=== PATIENT | male | born 1950 | race Caucasian/White ===

== ENCOUNTER → 2020-08-03 10:02 | Outpatient (BNVA) | payer MEDICARE, SELFPAY | PROVIDERS: PCP Family Medicine; Visit Provider Nurse Practitioner Family | DX: Z01.810 Encounter for preprocedural cardiovascular examination (principal); I48.20 Chronic atrial fibrillation, unspecified; I25.10 Atherosclerotic heart disease of native coronary artery without angina pectoris; I50.30 Unspecified diastolic (congestive) heart failure; Z95.5 Presence of coronary angioplasty implant and graft; Z95.0 Presence of cardiac pacemaker; Z79.01 Long term (current) use of anticoagulants; Z79.899 Other long term (current) drug therapy | CPT/HCPCS: 99214 ==

== ENCOUNTER → 2020-08-06 07:49 | Outpatient (REF) | payer MEDICARE, SELFPAY ==
--- NOTE | 2020-08-06 07:48 | CA_ITS ---
Acquisition Time: 2020-08-06 08:10:27 Total Exercise Time: 00:02:00 Test Indications: Pre-Op Evaluation Medications: AMLODIPINE ATORVASTATIN CLOPIDOGREL FUROSEMIDE HRDRALAZINE METOPROLOL LEVOTHYROXINE WARFARIN ISOSORBIDE METFORMIN Protocol: LEXISCAN Max HR: 081 BPM 54% of Pred: 149 BPM Max BP: 116/064 mmHG Max Work Load: 1.0 METS Pharmacological stress test using Lexiscan while sitting. Pt tolerated well, c/o abdominal discomfort, reversed with Aminophyline 75 mg IV. Pt denies any anginal sx. EKG with LBBB, V-paced and a-fib. Non-diagnostic for ischemia. Nuclear images to follow. Normotensive response to test. Test reviewed with Dr. Ramirez Referred By: Miranda Cobb Overread By: Martir Mata
--- NOTE | 2020-08-06 08:15 | NM_ITS ---
Lexiscan Myocardial perfusion study Indication: Preoperative cardiac vascular evaluation, coronary disease, assess for ischemia Technique: The patient was brought in for a Lexiscan perfusion study on 08/06/2020 and was injected 0.4 mg of Lexiscan intravenously. Within a minute of this injection 30 mCi of sestamibi was given intravenously. Images were obtained using the SPECT gamma camera interlaced with the gating device. Images were obtained in supine position. Resting perfusion study was performed on 08/07/2020. Patient was administered 30 mCi of sestamibi intravenously at rest. Images were then obtained in supine position. Total DLP 61mGy-cm. Images were processed with the software and compared side to side in short axis, horizontal long axis and vertical long axis views. Findings: Raw acquisition was reviewed. The stress perfusion study showed markedly diminished tracer uptake along the inferior wall except in the most distal portion. There is some improvement with CT attenuation correction that may indicate a component of diaphragmatic artifact. The gated study shows normal LV systolic function with calculated LVEF of 66%. LV cavity is normal in size. The gated study markedly diminished contractility along the inferior wall. Resting study shows markedly diminished tracer uptake along the inferior wall with only slight improvement compared to the stress acquisition. Gating at rest reveals ejection fraction at 55%. The findings are consistent with mostly fixed inferior perfusion defect. Impression: 1. Myocardial perfusion imaging study shows fixed perfusion defect along the inferior wall from basal to mid portions with minimal reversibility. This is consistent with patient's known chronic total occlusion of the right coronary artery. Other areas appear normally perfused. 2. Gated LVEF is 66% during stress; 52% during rest. 3. Transient ischemic dilatation not present. EKG component of the test reported separately.
== END ==
LOC: HO.CARD 07:49
PROVIDERS: Visit Provider Nurse Practitioner Family
DX: Z01.810 Encounter for preprocedural cardiovascular examination (principal); I48.20 Chronic atrial fibrillation, unspecified; I50.30 Unspecified diastolic (congestive) heart failure; I25.10 Atherosclerotic heart disease of native coronary artery without angina pectoris; Z95.0 Presence of cardiac pacemaker; Z95.5 Presence of coronary angioplasty implant and graft
CPT/HCPCS: 78452; 93017; A9500; J0280; J2785

== ENCOUNTER → 2020-08-07 09:32 | Outpatient (BNVA) | payer MEDICARE, SELFPAY | PROVIDERS: PCP Family Medicine; Visit Provider Internal Medicine Pulmonary Disease | DX: Z76.89 Persons encountering health services in other specified circumstances (principal) ==

== ENCOUNTER 2020-08-11 07:42 | Outpatient (REF) | payer MEDICARE, SELFPAY ==
[2020-08-11 08:35] LABS: INTERNATIONAL NORM RATIO 3.3 (0.9-1.1); Prothrombin Time 39.3 SEC (10.8-13.0)
== END 2020-08-11 07:43 | disposition home or self-care (01) ==
LOC: HO.LABR 07:42
PROVIDERS: PCP Family Medicine; Visit Provider Family Medicine
DX: I48.19 Other persistent atrial fibrillation (principal); Z79.01 Long term (current) use of anticoagulants
CPT/HCPCS: 36415; 85610

== ENCOUNTER → 2020-08-12 12:36 | Outpatient (BNVA) | payer MEDICARE, SELFPAY | PROVIDERS: PCP Family Medicine; Referring Provider Family Medicine; Visit Provider Internal Medicine | DX: Z01.810 Encounter for preprocedural cardiovascular examination (principal); I48.19 Other persistent atrial fibrillation; I11.0 Hypertensive heart disease with heart failure; I50.30 Unspecified diastolic (congestive) heart failure; I25.10 Atherosclerotic heart disease of native coronary artery without angina pectoris; E78.5 Hyperlipidemia, unspecified; E11.9 Type 2 diabetes mellitus without complications; Z79.01 Long term (current) use of anticoagulants; Z79.02 Long term (current) use of antithrombotics/antiplatelets; Z95.0 Presence of cardiac pacemaker; Z95.5 Presence of coronary angioplasty implant and graft | CPT/HCPCS: 99215 ==

== ENCOUNTER 2020-08-18 08:02 | Outpatient (REF) | payer MEDICARE, SELFPAY ==
[2020-08-18 10:41] LABS: INTERNATIONAL NORM RATIO 2.8 (0.9-1.1); Prothrombin Time 34.1 SEC (10.8-13.0)
== END 2020-08-18 08:03 | disposition home or self-care (01) ==
LOC: HO.10HDL 08:02
PROVIDERS: PCP Internal Medicine; Visit Provider Internal Medicine
DX: I48.91 Unspecified atrial fibrillation (principal)
CPT/HCPCS: 36415; 85610

== ENCOUNTER 2020-09-01 09:59 | Outpatient (REF) | payer MEDICARE, SELFPAY ==
--- NOTE | 2020-09-01 08:06 | PE_ITS ---
EXAMINATION: Fluorine-18 FDG PET/CT Scan CLINICAL INDICATION: Initial treatment management. Pulmonary nodules. PROCEDURE: 73 minutes following the intravenous administration of 15.3 mCi of fluorine 18 FDG, images from the base of the skull to the mid thighs were obtained using a combined PET/CT scanner with CT scan based attenuation correction. No oral contrast was administered. No intravenous contrast was administered. Transverse, coronal, sagittal, and volume reconstruction projections were obtained. The patient's blood glucose as determined by a finger stick, was 114 mg/dl immediately prior to injection. Total CT exam dose-length product 605.64 mGy-cm COMPARISON: No previous PET/CT is available for comparison. CT scan of the chest dated 07/09/2020 is available for comparison. FINDINGS: (Slice numbers described in this report are numbered superiorly to inferiorly with slice #1 in the head) NECK AND VISUALIZED HEAD: No foci of abnormal FDG activity are noted. The distribution of FDG activity is physiological. There is no cervical lymphadenopathy. There is a small mucous retention cyst in the left maxillary sinus with no associated abnormal FDG activity. THORAX: There is a medial pleural-based left upper lobe pulmonary nodule measuring 0.9 x 0.7 cm in largest transverse dimensions, and approximately 1.2 cm cephalocaudad. This shows no abnormal FDG activity, but this nodule is at the lower limits of resolution the FDG PET images. There is a solid-appearing 1.0 x 0.5 cm nodule posteriorly in the left lower lobe, too small to be characterized on the FDG PET images. This corresponds to the 0.5 x 0.7 x 1.2 mm groundglass opacity visualized on the 07/09/2020 CT scan. Both of these nodules do not appear significantly changed from the CT scan dated 07/09/2020.. A 0.3 cm left upper lobe nodule seen on 07/09/2020 CT scan is not apparent on these nondiagnostic CT images. No additional pulmonary nodules are visualized. A few additional small subcentimeter nodules visualized on the diagnostic 07/09/2020 CT scan are not apparent on these nondiagnostic CT images. There is no pleural or pericardial fluid, or pneumothorax. There is a 1.6 x 1.0 cm right lower paratracheal lymph node with no abnormal FDG activity. A few additional subcentimeter mediastinal lymph nodes are present, none of which show abnormal FDG activity. There is no supraclavicular or axillary lymphadenopathy. A left-sided a left chest pacemaker and associated leads are noted. ABDOMEN AND PELVIS: No foci of abnormal FDG activity are present in the abdomen or pelvis. The liver, gallbladder, and spleen are unremarkable. There is a mild right hydronephrosis and some dilatation of the distal right ureter. There is relatively decreased activity in the left kidney and a small hypodense cyst in the left kidney is noted, markedly FDG photopenic. The adrenal glands and pancreas are unremarkable. There is no retroperitoneal, mesenteric, pelvic or inguinal lymphadenopathy. There is FDG activity of varying intensities throughout the gastrointestinal tract and diffuse diverticulosis is noted without diverticulitis. The hollow viscera are otherwise unremarkable. The prostate gland has been resected and there are multiple metallic surgical clips in the prostate bed. There is no abnormal FDG activity in this region. Minimal thickening of the bladder wall is noted diffusely. Bilateral fat-containing inguinal hernias are present. MUSCULOSKELETAL: No foci of abnormal FDG activity are present in the osseous structures. There are degenerative changes in the spine but no suspicious sclerotic or lytic lesions are present. VASCULAR: Diffuse vascular calcifications including dense coronary calcifications are noted. There is ectasia of the infrarenal abdominal aorta measuring 2.9 cm in greatest AP diameter. PET/PET CT fusion skull to thigh IMPRESSION: 1. There is a 0.9 x 0.7 x 1.2 cm medial left upper lobe pulmonary nodule which shows no abnormal FDG activity suggesting a benign etiology, but this nodule is at the lower limits of resolution on the FDG PET images. Continued monitoring of this with diagnostic CT imaging in approximately 6-9 months is recommended. 2. An additional 1.0 x 0.5 cm nodule posteriorly in the left lower lobe is too small to be characterized on the FDG PET images and continued monitoring of this also with diagnostic CT imaging in 6-9 months is recommended. 3. A few additional small subcentimeter nodules visualized on the recent 07/09/[address] scan are not apparent on these nondiagnostic CT images, and all are much too small to be resolved on the FDG PET images. These 10 also be monitored with diagnostic CT imaging. 4. No additional abnormalities suspicious for metastatic or other malignant lesions are noted. 5. Diffuse vascular calcifications including dense coronary calcifications. 6. Mild right hydronephrosis and distal ureteral dilatation.
== END 2020-09-01 10:00 | disposition home or self-care (01) ==
LOC: HO.PET 09:59
PROVIDERS: PCP Family Medicine; Visit Provider Surgery
DX: Z13.89 Encounter for screening for other disorder (principal)

== ENCOUNTER 2020-09-08 07:33 | Outpatient (REF) | payer MEDICARE, SELFPAY ==
[2020-09-08 10:20] LABS: MANUAL DIFF FLAG NO
[2020-09-08 10:33] LABS: Basophils Percent Auto 0.5 % (0-2); Eosinophils Absolute Auto 0.2 X10*3/uL (0.0-0.4); Eosinophils Percent Auto 2.6 % (0-4); Hematocrit 34.2 % (42-52); Hemoglobin 11.4 g/dl (14.0-18.0); Imm Gran Abs Auto 0.01 X10*3/uL (0.00-0.03); Imm Gran Pct Auto 0.2 % (0.0-0.4); Lymphocytes Absolute Auto 1.1 X10*3/uL (1.2-4.9); Lymphocytes Percent Auto 17.3 % (20-40); Mean Corpuscular HGB Conc 33.3 g/dl (31.0-36.0); Mean Corpuscular Hemoglobin 33.6 pg (27.0-33.0); Mean Corpuscular Volume 100.9 fL (80-98); Mean Platelet Volume 9.5 fL (9.4-12.4); Monocytes Absolute Auto 0.7 X10*3/uL (0.1-1.2); Monocytes Percent Auto 11.9 % (2-11); Neutrophils Absolute Auto 4.2 X10*3/uL (2.0-8.3); Neutrophils Percent Auto 67.5 % (45-73); Platelet Count 201 X10*3/uL (160-400); Red Blood Count 3.39 X10*6/uL (4.60-5.80); Red Cell Distribution Width 13.4 % (11.0-16.0); White Blood Count 6.1 X10*3/uL (4.8-10.8)
[2020-09-08 10:48] LABS: INTERNATIONAL NORM RATIO 3.3 (0.9-1.1); Prothrombin Time 39.5 SEC (10.8-13.0)
[2020-09-08 10:57] LABS: Anion Gap 12 (12-20); Blood Urea Nitrogen 19 mg/dL (9-16); Carbon Dioxide 23 mmol/L (22-29); Chloride 107 mmol/L (96-108); Estimated Glomerular Filt Rate 54; Glucose Fasting 94 mg/dL (60-99); Sodium 138 mmol/L (135-145)
[2020-09-08 10:59] LABS: Estimated Average Glucose 117 mg/dL; Hemoglobin A1c % 5.7 %
[2020-09-08 11:22] LABS: Creatinine Urine 108.84 mg/dL; Microalbum/Creatinine Ratio Ur 33.9 ug/mg cr
== END 2020-09-08 07:34 | disposition home or self-care (01) ==
LOC: HO.10HDL 07:33
PROVIDERS: Visit Provider Family Medicine
DX: E11.9 Type 2 diabetes mellitus without complications (principal); I10 Essential (primary) hypertension; D64.9 Anemia, unspecified
CPT/HCPCS: 36415; 80051; 82043; 82565; 82947; 83036; 84520; 85025; 85610

== ENCOUNTER → 2020-09-11 12:03 | Outpatient (BNVA) | payer MEDICARE, SELFPAY | PROVIDERS: PCP Internal Medicine; Referring Provider Internal Medicine; Visit Provider Surgery | DX: R91.1 Solitary pulmonary nodule (principal); I25.10 Atherosclerotic heart disease of native coronary artery without angina pectoris; Z86.74 Personal history of sudden cardiac arrest; Z87.891 Personal history of nicotine dependence | CPT/HCPCS: 99214 ==

== ENCOUNTER 2020-09-15 07:44 | Outpatient (REF) | payer MEDICARE, SELFPAY ==
[2020-09-15 10:45] LABS: INTERNATIONAL NORM RATIO 2.7 (0.9-1.1); Prothrombin Time 32.9 SEC (10.8-13.0)
== END 2020-09-15 07:45 | disposition home or self-care (01) ==
LOC: HO.10HDL 07:44
PROVIDERS: Visit Provider Family Medicine
DX: I48.20 Chronic atrial fibrillation, unspecified (principal)
CPT/HCPCS: 36415; 85610

== ENCOUNTER 2020-09-22 08:23 | Outpatient (REF) | payer MEDICARE, SELFPAY ==
[2020-09-22 10:22] LABS: INTERNATIONAL NORM RATIO 2.3 (0.9-1.1); Prothrombin Time 27.5 SEC (10.8-13.0)
== END 2020-09-22 08:24 | disposition home or self-care (01) ==
LOC: HO.10HDL 08:23
PROVIDERS: Visit Provider Family Medicine
DX: I48.20 Chronic atrial fibrillation, unspecified (principal)
CPT/HCPCS: 36415; 85610

== ENCOUNTER 2020-10-06 07:32 | Outpatient (REF) | payer MEDICARE, SELFPAY ==
[2020-10-06 11:11] LABS: Prothrombin Time 24.4 SEC (10.8-13.0)
== END 2020-10-06 07:33 | disposition home or self-care (01) ==
LOC: HO.10HDL 07:32
PROVIDERS: PCP Student in an Organized Health Care Education/Training Program; Visit Provider Family Medicine
DX: I48.91 Unspecified atrial fibrillation (principal)
CPT/HCPCS: 36415; 85610

== ENCOUNTER 2020-10-20 09:43 | Outpatient (REF) | payer MEDICARE, SELFPAY ==
[2020-10-20 10:45] LABS: INTERNATIONAL NORM RATIO 1.7 (0.9-1.1)
== END 2020-10-20 09:44 | disposition home or self-care (01) ==
LOC: HO.10HDLR 09:43
PROVIDERS: PCP Family Medicine; Visit Provider Family Medicine
DX: I48.20 Chronic atrial fibrillation, unspecified (principal)
CPT/HCPCS: 36415; 85610

== ENCOUNTER 2020-11-10 08:41 | Outpatient (REF) | payer MEDICARE, SELFPAY ==
[2020-11-10 13:39] LABS: MANUAL DIFF FLAG NO
[2020-11-10 13:47] LABS: Basophils Percent Auto 0.4 % (0-2); Eosinophils Absolute Auto 0.1 X10*3/uL (0.0-0.4); Eosinophils Percent Auto 2.5 % (0-4); Hematocrit 36.4 % (42-52); Hemoglobin 11.9 g/dl (14.0-18.0); Imm Gran Abs Auto 0.01 X10*3/uL (0.00-0.03); Imm Gran Pct Auto 0.2 % (0.0-0.4); Lymphocytes Absolute Auto 1.1 X10*3/uL (1.2-4.9); Lymphocytes Percent Auto 19.9 % (20-40); Mean Corpuscular HGB Conc 32.7 g/dl (31.0-36.0); Mean Corpuscular Hemoglobin 33.2 pg (27.0-33.0); Mean Corpuscular Volume 101.7 fL (80-98); Mean Platelet Volume 9.5 fL (9.4-12.4); Monocytes Absolute Auto 0.6 X10*3/uL (0.1-1.2); Neutrophils Absolute Auto 3.7 X10*3/uL (2.0-8.3); Platelet Count 199 X10*3/uL (160-400); Red Blood Count 3.58 X10*6/uL (4.60-5.80); Red Cell Distribution Width 12.6 % (11.0-16.0); White Blood Count 5.5 X10*3/uL (4.8-10.8)
[2020-11-10 14:16] LABS: Prothrombin Time 23.5 SEC (10.8-13.0)
[2020-11-10 14:46] LABS: Anion Gap 13 (12-20); Blood Urea Nitrogen 25 mg/dL (9-16); Carbon Dioxide 24 mmol/L (22-29); Chloride 108 mmol/L (96-108); Estimated Glomerular Filt Rate 51; Potassium 4.1 mmol/l (3.3-5.1); Sodium 141 mmol/L (135-145)
== END 2020-11-10 08:42 | disposition home or self-care (01) ==
LOC: HO.10HDL 08:41
PROVIDERS: Visit Provider Family Medicine
DX: E03.9 Hypothyroidism, unspecified (principal); D64.9 Anemia, unspecified; N18.30 Chronic kidney disease, stage 3 unspecified
CPT/HCPCS: 36415; 80051; 82565; 84439; 84520; 85025; 85610

== ENCOUNTER 2020-12-09 12:18 | Outpatient (REF) | payer MEDICARE, SELFPAY ==
[2020-12-09 13:53] LABS: INTERNATIONAL NORM RATIO 1.7 (0.9-1.1); Prothrombin Time 20.4 SEC (10.8-13.0)
== END 2020-12-09 12:19 | disposition home or self-care (01) ==
LOC: HO.10HDL 12:18
PROVIDERS: Visit Provider Family Medicine
DX: I48.20 Chronic atrial fibrillation, unspecified (principal)
CPT/HCPCS: 36415; 85610

== ENCOUNTER 2020-12-23 08:22 | Outpatient (REF) | payer MEDICARE, SELFPAY ==
[2020-12-23 10:24] LABS: INTERNATIONAL NORM RATIO 1.9 (0.9-1.1); Prothrombin Time 22.8 SEC (10.8-13.0)
== END 2020-12-23 08:23 | disposition home or self-care (01) ==
LOC: HO.10HDLR 08:22
PROVIDERS: Visit Provider Family Medicine
DX: I48.20 Chronic atrial fibrillation, unspecified (principal)
CPT/HCPCS: 36415; 85610

== ENCOUNTER 2021-01-21 07:46 | Outpatient (REF) | payer MEDICARE, SELFPAY ==
[2021-01-21 10:26] LABS: INTERNATIONAL NORM RATIO 1.7 (0.9-1.1); Prothrombin Time 19.8 SEC (10.8-13.0)
[2021-01-21 10:48] LABS: Anion Gap 15 (12-20); Blood Urea Nitrogen 24 mg/dL (9-16); Carbon Dioxide 22 mmol/L (22-29); Chloride 107 mmol/L (96-108); Estimated Glomerular Filt Rate 51; Glucose Random 122 mg/dL (60-115); Potassium 3.9 mmol/L (3.3-5.1); Sodium 140 mmol/L (135-145)
[2021-01-21 11:57] LABS: Prostate Specific Antigen 28.72 ng/mL (<0.05-4.0)
== END 2021-01-21 07:47 | disposition home or self-care (01) ==
LOC: HO.10HDLR 07:46
PROVIDERS: Absent Provider Urology; Visit Provider Family Medicine
DX: C61 Malignant neoplasm of prostate (principal); Z12.5 Encounter for screening for malignant neoplasm of prostate; R31.0 Gross hematuria; I48.20 Chronic atrial fibrillation, unspecified
CPT/HCPCS: 36415; 80051; 82565; 82947; 84153; 84520; 85610

== ENCOUNTER 2021-01-25 11:38 | Outpatient (REF) | payer MEDICARE, SELFPAY ==
[2021-01-25 13:58] LABS: MANUAL DIFF FLAG NO
[2021-01-25 14:10] LABS: Basophils Percent Auto 0.7 % (0-2); Eosinophils Absolute Auto 0.1 X10*3/uL (0.0-0.4); Eosinophils Percent Auto 2.2 % (0-4); Hematocrit 33.5 % (42-52); Hemoglobin 11.4 g/dl (14.0-18.0); Imm Gran Abs Auto 0.02 X10*3/uL (0.00-0.03); Imm Gran Pct Auto 0.3 % (0.0-0.4); Lymphocytes Percent Auto 17.5 % (20-40); Mean Corpuscular Hemoglobin 34.2 pg (27.0-33.0); Mean Corpuscular Volume 100.6 fL (80-98); Mean Platelet Volume 9.2 fL (9.4-12.4); Monocytes Absolute Auto 0.7 X10*3/uL (0.1-1.2); Monocytes Percent Auto 11.4 % (2-11); Neutrophils Percent Auto 67.9 % (45-73); Platelet Count 241 X10*3/uL (160-400); Red Blood Count 3.33 X10*6/uL (4.60-5.80); Red Cell Distribution Width 13.3 % (11.0-16.0); White Blood Count 5.9 X10*3/uL (4.8-10.8)
[2021-01-25 14:30] LABS: Blood Urea Nitrogen 15 mg/dL (9-16); Estimated Glomerular Filt Rate > 60
== END 2021-01-25 11:39 | disposition home or self-care (01) ==
LOC: HO.10HDL 11:38
PROVIDERS: Absent Provider Internal Medicine; Referring Provider Family Medicine; Visit Provider Urology
DX: Z12.5 Encounter for screening for malignant neoplasm of prostate (principal); C61 Malignant neoplasm of prostate
CPT/HCPCS: 36415; 82565; 84520; 85025

== ENCOUNTER 2021-02-04 09:40 | Outpatient (REF) | payer MEDICARE, SELFPAY ==
[2021-02-04 10:31] LABS: INTERNATIONAL NORM RATIO 1.6 (0.9-1.1); Prothrombin Time 19.4 SEC (10.8-13.0)
== END 2021-02-04 09:41 | disposition home or self-care (01) ==
LOC: HO.10HDL 09:40
PROVIDERS: Visit Provider Family Medicine
DX: I48.20 Chronic atrial fibrillation, unspecified (principal)
CPT/HCPCS: 36415; 85610

== ENCOUNTER 2021-02-19 08:35 | Outpatient (REF) | payer MEDICARE, SELFPAY ==
[2021-02-19 10:44] LABS: INTERNATIONAL NORM RATIO 1.4 (0.9-1.1); Prothrombin Time 17.1 SEC (10.8-13.0)
[2021-02-19 10:49] LABS: Alanine Aminotransferase 10 U/L (0-40); Cholesterol 97 mg/dL; Glucose Fasting 119 mg/dL (60-99); HDL Cholesterol 24 mg/dL; LDL Cholesterol Calculated 48 mg/dl; Triglycerides 125 mg/dL
[2021-02-19 10:50] LABS: Estimated Average Glucose 111 mg/dL; Hemoglobin A1c % 5.5 %
== END 2021-02-19 08:36 | disposition home or self-care (01) ==
LOC: HO.10HDL 08:35
PROVIDERS: Visit Provider Family Medicine
DX: I48.20 Chronic atrial fibrillation, unspecified (principal); E78.00 Pure hypercholesterolemia, unspecified; E11.9 Type 2 diabetes mellitus without complications; Z79.01 Long term (current) use of anticoagulants; Z51.81 Encounter for therapeutic drug level monitoring; Z79.899 Other long term (current) drug therapy
CPT/HCPCS: 36415; 80061; 82550; 82947; 83036; 84460; 85610

== ENCOUNTER 2021-02-25 09:40 | Outpatient (REF) | payer MEDICARE, SELFPAY ==
[2021-02-25 10:39] LABS: INTERNATIONAL NORM RATIO 2.2 (0.9-1.1); Prothrombin Time 26.6 SEC (10.8-13.0)
== END 2021-02-25 09:41 | disposition home or self-care (01) ==
LOC: HO.10HDLR 09:40
PROVIDERS: Visit Provider Family Medicine
DX: I48.20 Chronic atrial fibrillation, unspecified (principal)
CPT/HCPCS: 36415; 85610

== ENCOUNTER 2021-03-04 09:12 | Outpatient (REF) | payer MEDICARE, SELFPAY ==
[2021-03-04 10:32] LABS: INTERNATIONAL NORM RATIO 2.4 (0.9-1.1); Prothrombin Time 28.8 SEC (10.8-13.0)
== END 2021-03-04 09:13 | disposition home or self-care (01) ==
LOC: HO.10HDLR 09:12
PROVIDERS: Visit Provider Family Medicine
DX: I48.20 Chronic atrial fibrillation, unspecified (principal)
CPT/HCPCS: 36415; 85610

== ENCOUNTER 2021-04-29 10:12 | Outpatient (REF) | payer MEDICARE, SELFPAY ==
[2021-04-29 12:10] LABS: INTERNATIONAL NORM RATIO 2.4 (0.9-1.1); Prothrombin Time 28.2 SEC (10.8-13.0)
== END 2021-04-29 10:13 | disposition home or self-care (01) ==
LOC: HO.LABR 10:12
PROVIDERS: PCP Family Medicine; Visit Provider Family Medicine
DX: I48.20 Chronic atrial fibrillation, unspecified (principal)
CPT/HCPCS: 36415; 85610

== ENCOUNTER 2021-05-17 11:08 | Outpatient (REF) | payer MEDICARE, SELFPAY | END 2021-05-17 11:09 | disposition home or self-care (01) | LOC: HO.HMGCLDS 11:08 | PROVIDERS: PCP Family Medicine; Visit Provider Internal Medicine | DX: Z20.822 Contact with and (suspected) exposure to COVID-19 (principal) | CPT/HCPCS: C9803; U0003; U0005 ==

== ENCOUNTER 2021-05-19 15:58 | Outpatient (REF) | payer MEDICARE, SELFPAY ==
--- NOTE | ~2021-05-19 | XR_ITS ---
EXAMINATION: XR CHEST CLINICAL INFORMATION: Cough. Shortness of breath. COMPARISON: Previous chest x-ray February [address] June 2020 TECHNIQUE: 2 views of the chest were obtained. FINDINGS: The cardiac silhouette is enlarged but stable. There is a left subclavian single chamber pacemaker that appears unchanged. The lungs are clear. There is no pleural effusion or pneumothorax. There are degenerative changes of the spine. XR/XR chest 2V IMPRESSION: Stable enlargement of the cardiac silhouette. No evidence for acute disease in the chest.
== END 2021-05-19 15:59 | disposition home or self-care (01) ==
LOC: HO.XRAY 15:58
PROVIDERS: PCP Family Medicine; Visit Provider Family Medicine
DX: R06.02 Shortness of breath (principal); R05 Cough
CPT/HCPCS: 71046

== ENCOUNTER 2021-05-24 20:30 | Inpatient (IN) | payer MEDICARE, SELFPAY ==
--- NOTE | ~2021-05-24 | CT_ITS ---
EXAMINATION: CT CHEST WITHOUT CONTRAST CLINICAL INFORMATION: Shortness of breath. COMPARISON: None TECHNIQUE: Multidetector volumetric CT imaging of the chest was done. Axial MIP volume rendering provided. Sagittal and coronal reformatted images were obtained. This CT examination was performed using dose optimization techniques as appropriate, variously including the following: *Automated exposure control *Adjustment of mA and/or kV according to patient size (this includes techniques or standardized protocols for targeted exams where dose is matched to indication/reason for exam; i.e. extremities or head) *Use of iterative reconstruction technique DLP: 293 mGy-cm FINDINGS: [employer] PRINCIPAL: Unremarkable. There is a solitary pacer electrode in the right ventricle. LUNGS: The lungs are well expanded with patchy density dependent segments left upper lobe, left lower lobe, right upper lobe, and right lower lobe. Some ill-defined density is seen in the left upper lobe medial segment axial image 10/4. No large consolidation, mass or nodule seen. MEDIASTINUM: Calcified atherosclerotic disease throughout the aortic arch, its branches and coronary arteries is noted. No aneurysm seen. Heart size is normal. Solitary pacer electrode tip is in right ventricle. No pericardial effusion. The central trachea and the bronchi are widely patent. No pericardial effusion seen. The thyroid lobes are small but symmetrical. PLEURA: There is minimal right posterior pleural thickening. No evidence of effusion. AXILLA: There are small shotty lymph nodes in the axilla. The chest wall appears normal. UPPER ABDOMEN: Visualized liver, spleen, pancreas, and bilateral adrenal glands are unremarkable. There are no radiopaque gallstones or wall thickening. There is prominent bilateral kidney pelvises in the proximal ureter. OSSEOUS STRUCTURES: Mild degenerative disc changes seen in the mid to lower dorsal spine with spondylosis. No fracture or lytic process seen. CT/CT chest wo con IMPRESSION: Dependent bilateral lower and upper lobe patchy ground-glass opacities likely low-grade inflammatory or infectious etiology. No consolidation seen. There is a medial segment left apical dense opacity, likely inflammatory process. The nodule is considered less likely but cannot be excluded. Recommend follow-up CT chest in 3 months. 1 cm pretracheal lymph node. Solitary pacer electrode in the right ventricle. Small right pleural effusion and/or pleural thickening.
--- NOTE | ~2021-05-24 | XR_ITS ---
EXAMINATION: XR CHEST CLINICAL INFORMATION: Shortness of breath, cough COMPARISON: 05/19/2021 TECHNIQUE: 2 views of the chest were obtained. FINDINGS: Stable examination. No focal consolidation, pleural effusion or pneumothorax. Minimal cardiomegaly. Left chest pacer with leads projecting over the right ventricle. Atherosclerotic calcifications thoracic aorta. No acute osseous abnormality. XR/XR chest 2V IMPRESSION: Stable examination without evidence of acute pulmonary process.
[2021-05-24 20:45] VITALS: BP 122/49; PULSE 68; RESP 20; TEMP 37; O2SAT 94; BMI 26.9
--- NOTE | 2021-05-24 20:51 | ECG_ITS ---
Test Reason : DYSPNEA Blood Pressure : / mmHG Vent. Rate : 072 BPM Atrial Rate : 072 BPM P-R Int : 342 ms QRS Dur : 114 ms QT Int : 454 ms P-R-T Axes : 062 -12 245 degrees QTc Int : 497 ms Sinus rhythm with 1st degree A-V block with Premature atrial complexes ST & T wave abnormality, consider inferior ischemia ST & T wave abnormality, consider anterolateral ischemia Prolonged QT Abnormal ECG When compared with ECG of 15-NOV-2016 06:21, anterior changes more prominent Rhythm change Referred By: Generic ED Physician Electronically Signed By:DEE DOUGLASS
[2021-05-24 21:24] VITALS: BP 127/56; PULSE 65; RESP 20; TEMP 36.7; O2SAT 98
--- NOTE | 2021-05-24 21:32 | ED.SOB ---
HPI - SOB/Dyspnea General Chief Complaint: Dyspnea Stated Complaint: DIFF BREATHING Time Seen by Provider: 05/24/21 21:32 Source: patient Mode of arrival: ambulatory History of Present Illness HPI Narrative: 71-year-old male with significant cardiac history with a pacemaker who presents with significantly worsening shortness of breath and dyspnea on exertion for the past 5-7 days and was seen by his primary care provider on Monday and directed to come to the emergency room, but patient states he had ?too much to do? and spent the weekend hauling stuff into a dumpster. Patient denies any chest pain over the weekend but states that his shortness of breath began worsening without noting any lower extremity swelling, but states his cough got much worse and he is a known COPD patient. He no longer smokes cigarettes and denies any associated dizziness, fevers, chills, sore throat and has had both COVID-19 vaccines. Related Data Home Medications Medication Instructions Recorded Confirmed albuterol sulfate 90 mcg/actuation INHALATION 08/03/20 09/11/20 aerosol inhaler tiotropium bromide 2.5 INHALATION 08/03/20 09/11/20 mcg/actuation mist for inhalation amlodipine 10 mg tablet 10 mg PO DAILY tab 08/12/20 09/11/20 atorvastatin 80 mg tablet 80 mg PO DAILY tab 08/12/20 09/11/20 clopidogrel 75 mg tablet 75 mg PO DAILY tab 08/12/20 09/11/20 furosemide 40 mg tablet 40 mg PO DAILY tab 08/12/20 09/11/20 isosorbide mononitrate 30 mg 30 mg PO DAILY tab 08/12/20 09/11/20 tablet,extended release 24 hr levothyroxine 150 mcg tablet 150 mcg PO DAILY tab 08/12/20 09/11/20 metformin 500 mg tablet 500 mg PO tab 08/12/20 09/11/20 omeprazole 20 mg capsule,delayed 20 mg PO DAILY cap 08/12/20 09/11/20 release spironolactone 25 mg tablet 25 mg PO DAILY tab 08/12/20 09/11/20 warfarin 1 mg tablet 1 mg PO DIRECTED tab 08/12/20 09/11/20 warfarin 3 mg tablet 3 mg PO DIRECTED tab 08/12/20 09/11/20 Previous Rx's Medication Instructions Recorded metoprolol succinate 100 mg 100 mg PO DAILY 90 Days #90 tab 10/20/20 tablet,extended release 24 hr hydralazine 25 mg tablet 25 mg PO TID #270 tab 02/23/21 ranolazine 500 mg tablet,extended 500 mg PO BID 30 Days #60 tab 05/11/21 release,12 hr Allergies Allergy/AdvReac Type Severity Reaction Status Date / Time lisinopril [LISINOPRIL] Allergy Severe COUGH/ANGIO Verified 08/03/20 10:09 EDEMA Review of Systems Review of Systems: Pertinent positives and negatives as stated in HPI 10 point review of systems is otherwise negative. [facility] Past Medical History Source: nursing notes reviewed Medical History Atherosclerotic heart disease Atrial fibrillation, chronic Coronary artery arteriosclerosis Essential hypertension Heart failure with preserved ejection fraction Hx of placement of stent in anterior descending branch of left coronary artery Normally functioning cardiac pacemaker present Other and unspecified hyperlipidemia Pacemaker Persistent atrial fibrillation Type 2 diabetes mellitus with unspecified complications Surgical History History of permanent cardiac pacemaker placement Hx of cardiac cath Stented coronary artery Family History Family History Father CVD (cardiovascular disease) Social History Social History Alcohol intake: former Patient Tobacco Use Status: Former Tobacco user Use of substances other than those prescribed or required for medical reasons: No Advance Directives: No Advance Directives Information Provided: Yes Physical Exam Vital Signs: Vital Signs: Last Vital Signs Temp 98.1 F 05/24/21 21:24 Pulse 65 05/24/21 21:24 Resp 20 05/24/21 21:24 BP 127/56 L 05/24/21 21:24 Pulse Ox 91 L 05/24/21 22:47 Body Mass Index 26.9 VITAL SIGNS: Reviewed. GENERAL: Well developed, well nourished, mild distress. HEAD: Normocephalic/atraumatic, EYES: PERRLA, EOMI EARS: Ext canals without abnormality, TMs non-bulging and non-erythematous NOSE: Nares patent bilateral OROPHARYNX: no oral lesions noted, posterior pharynx clear LUNGS: Good air entry bilaterally, no rales or rhonchi noted. SpO2<98> CARDIOVASCULAR: Regular rate and rhythm without noted murmurs, no JVD or lower extremity edema. ABDOMEN: Soft, non-tender, non-distended with bowel sounds. SKIN: Inspection of the skin reveals no rashes NEUROLOGIC: Alert and oriented x 4. Strength and sensation to light touch were grossly intact x 4. Course Course Course Narrative: 71-year-old male with history and clinical presentation consistent with ischemic changes already on Coumadin. Review of all investigations consistent with CHF exacerbation and subsequent dyspnea, although no evidence to suggest COPD exacerbation, pneumonia, and INR>2 and will not be started on heparin at this time. This case was discussed with inpatient hospitalist team who is agreeable for admission. Reevaluation(s) Reevaluation #1: Case discussed with Cardiology on-call and recommendations for heparin if INR <2, recommends admission. Time: 21:46 MDM - SOB/Dyspnea Lab Data Result diagrams: 05/24/21 21:38 05/24/21 21:38 Labs: Lab Results 05/24/21 05/24/21 05/24/21 Range/Units 21:38 21:38 21:38 WBC 6.0 (4.8-10.8) X10*3/uL RBC 2.82 L (4.60-5.80) X10*6/uL Hgb 9.7 L (14.0-18.0) g/dl Hct 28.4 L (42-52) % MCV 100.7 H (80-98) fL MCH 34.4 H (27.0-33.0) pg MCHC 34.2 (31.0-36.0) g/dl RDW 14.6 (11.0-16.0) % Plt Count 239 (160-400) X10*3/uL MPV 8.6 L (9.4-12.4) fL Immature Gran % (Auto) 0.3 (0.0-0.4) % Neut % (Auto) 70.6 (45-73) % Lymph % (Auto) 16.1 L (20-40) % [place] % (Auto) 10.9 (2-11) % Eos % (Auto) 1.8 (0-4) % Baso % (Auto) 0.3 (0-2) % Lymph # (Auto) 1.0 L (1.2-4.9) X10*3/uL [place] # (Auto) 0.7 (0.1-1.2) X10*3/uL Eos # (Auto) 0.1 (0.0-0.4) X10*3/uL Baso # (Auto) 0.0 (0.0-0.2) X10*3/uL Abs Immat Gran (auto) 0.02 (0.00-0.03) X10*3/uL Absolute Neuts (auto) 4.3 (2.0-8.3) X10*3/uL Absolute Nucleated RBC 0.000 (0.0-0.012) X10*3/uL Nucleated RBC % (auto) 0.0 (0.0-0.2) /100WBC PT (9.9-13.0) SEC INR (0.9-1.1) APTT (24.1-38.0) SEC VBG pH VBG pCO2 VBG pO2 VBG HCO3 VBG O2 Saturation VBG Base Excess Sodium 144 (135-145) mmol/L Potassium 3.2 L (3.3-5.1) mmol/L Chloride 115 H (96-108) mmol/L Carbon Dioxide 17 L (22-29) mmol/L Anion Gap 15 (12-20) BUN 21 H (9-16) mg/dL Creatinine 1.73 H (0.5-1.4) mg/dL Estim Creat Clear Calc 38.5 Estimated GFR 39 Random Glucose 116 H (60-115) mg/dL Calcium 8.9 (8.4-10.2) mg/dL Troponin I High Sens (<3.5-35.0) ng/L B-Natriuretic Peptide (<100) pg/mL COVID-19 (ANDRES) Negative (Negative) COVID-19 Clin Com See Note 05/24/21 05/24/21 05/24/21 Range/Units 21:38 22:03 22:03 WBC (4.8-10.8) X10*3/uL RBC (4.60-5.80) X10*6/uL Hgb (14.0-18.0) g/dl Hct (42-52) % MCV (80-98) fL MCH (27.0-33.0) pg MCHC (31.0-36.0) g/dl RDW (11.0-16.0) % Plt Count (160-400) X10*3/uL MPV (9.4-12.4) fL Immature Gran % (Auto) (0.0-0.4) % Neut % (Auto) (45-73) % Lymph % (Auto) (20-40) % [place] % (Auto) (2-11) % Eos % (Auto) (0-4) % Baso % (Auto) (0-2) % Lymph # (Auto) (1.2-4.9) X10*3/uL [place] # (Auto) (0.1-1.2) X10*3/uL Eos # (Auto) (0.0-0.4) X10*3/uL Baso # (Auto) (0.0-0.2) X10*3/uL Abs Immat Gran (auto) (0.00-0.03) X10*3/uL Absolute Neuts (auto) (2.0-8.3) X10*3/uL Absolute Nucleated RBC (0.0-0.012) X10*3/uL Nucleated RBC % (auto) (0.0-0.2) /100WBC PT 31.1 H (9.9-13.0) SEC INR 2.7 H (0.9-1.1) APTT 45.2 H (24.1-38.0) SEC VBG pH Cancelled VBG pCO2 Cancelled VBG pO2 Cancelled VBG HCO3 Cancelled VBG O2 Saturation Cancelled VBG Base Excess Cancelled Sodium (135-145) mmol/L Potassium (3.3-5.1) mmol/L Chloride (96-108) mmol/L Carbon Dioxide (22-29) mmol/L Anion Gap (12-20) BUN (9-16) mg/dL Creatinine (0.5-1.4) mg/dL Estim Creat Clear Calc Estimated GFR Random Glucose (60-115) mg/dL Calcium (8.4-10.2) mg/dL Troponin I High Sens 9.3 (<3.5-35.0) ng/L B-Natriuretic Peptide 869 H (<100) pg/mL COVID-19 (ANDRES) (Negative) COVID-19 Clin Com 05/24/21 Range/Units 22:10 WBC (4.8-10.8) X10*3/uL RBC (4.60-5.80) X10*6/uL Hgb (14.0-18.0) g/dl Hct (42-52) % MCV (80-98) fL MCH (27.0-33.0) pg MCHC (31.0-36.0) g/dl RDW (11.0-16.0) % Plt Count (160-400) X10*3/uL MPV (9.4-12.4) fL Immature Gran % (Auto) (0.0-0.4) % Neut % (Auto) (45-73) % Lymph % (Auto) (20-40) % [place] % (Auto) (2-11) % Eos % (Auto) (0-4) % Baso % (Auto) (0-2) % Lymph # (Auto) (1.2-4.9) X10*3/uL [place] # (Auto) (0.1-1.2) X10*3/uL Eos # (Auto) (0.0-0.4) X10*3/uL Baso # (Auto) (0.0-0.2) X10*3/uL Abs Immat Gran (auto) (0.00-0.03) X10*3/uL Absolute Neuts (auto) (2.0-8.3) X10*3/uL Absolute Nucleated RBC (0.0-0.012) X10*3/uL Nucleated RBC % (auto) (0.0-0.2) /100WBC PT (9.9-13.0) SEC INR (0.9-1.1) APTT (24.1-38.0) SEC VBG pH 7.40 VBG pCO2 25 VBG pO2 44 VBG HCO3 16 L VBG O2 Saturation 69.0 VBG Base Excess TNP Sodium (135-145) mmol/L Potassium (3.3-5.1) mmol/L Chloride (96-108) mmol/L Carbon Dioxide (22-29) mmol/L Anion Gap (12-20) BUN (9-16) mg/dL Creatinine (0.5-1.4) mg/dL Estim Creat Clear Calc Estimated GFR Random Glucose (60-115) mg/dL Calcium (8.4-10.2) mg/dL Troponin I High Sens (<3.5-35.0) ng/L B-Natriuretic Peptide (<100) pg/mL COVID-19 (ANDRES) (Negative) COVID-19 Clin Com Critical Care Time Critical Care Time Critical Care Time: Yes Total Critical Care Time: 30 Attestation: I personally attest to this time spent taking care of the patient. Discharge Plan Discharge Clinical Impression: CHF exacerbation, PAGE (dyspnea on exertion), DARREN (acute kidney injury) Patient Disposition: Admitted As Inpatient
--- NOTE | 2021-05-24 21:39 | PC.NURSE ---
iv inserted, labs drawn, pt speaking in full sentences, vss, will continue to monitor.
[2021-05-24 21:44] LABS: MANUAL DIFF FLAG NO
[2021-05-24 21:46] LABS: Basophils Percent Auto 0.3 % (0-2); Eosinophils Absolute Auto 0.1 X10*3/uL (0.0-0.4); Eosinophils Percent Auto 1.8 % (0-4); Hematocrit 28.4 % (42-52); Hemoglobin 9.7 g/dl (14.0-18.0); Imm Gran Abs Auto 0.02 X10*3/uL (0.00-0.03); Imm Gran Pct Auto 0.3 % (0.0-0.4); Lymphocytes Percent Auto 16.1 % (20-40); Mean Corpuscular HGB Conc 34.2 g/dl (31.0-36.0); Mean Corpuscular Hemoglobin 34.4 pg (27.0-33.0); Mean Corpuscular Volume 100.7 fL (80-98); Mean Platelet Volume 8.6 fL (9.4-12.4); Monocytes Absolute Auto 0.7 X10*3/uL (0.1-1.2); Monocytes Percent Auto 10.9 % (2-11); Neutrophils Absolute Auto 4.3 X10*3/uL (2.0-8.3); Neutrophils Percent Auto 70.6 % (45-73); Platelet Count 239 X10*3/uL (160-400); Red Blood Count 2.82 X10*6/uL (4.60-5.80); Red Cell Distribution Width 14.6 % (11.0-16.0)
[2021-05-24 22:01] LABS: COVID-19 Test Negative (Negative)
[2021-05-24 22:07] LABS: Anion Gap 15 (12-20); Blood Urea Nitrogen 21 mg/dL (9-16); Calcium 8.9 mg/dL (8.4-10.2); Carbon Dioxide 17 mmol/L (22-29); Chloride 115 mmol/L (96-108); Creatinine Clr Calc Pharmacy 38.5; Estimated Glomerular Filt Rate 39; Glucose Random 116 mg/dL (60-115); Potassium 3.2 mmol/L (3.3-5.1); Sodium 144 mmol/L (135-145)
[2021-05-24 22:12] LABS: B Type Natriuretic Peptide 869 pg/mL (<100); Troponin-I High Sensitivity 9.3 ng/L (<3.5-35.0)
[2021-05-24 22:16] LABS: INTERNATIONAL NORM RATIO 2.7 (0.9-1.1); Prothrombin Time 31.1 SEC (9.9-13.0)
[2021-05-24 22:18] LABS: Partial Thromboplastin Time 45.2 SEC (24.1-38.0)
[2021-05-24 22:30] LABS: Venous Blood Gas Refer to POC result
[2021-05-24 22:33] LABS: VBG HCO3 16 mmol/L (22-26); VBG pCO2 25 mmHg; VBG pO2 44 mmHg
[2021-05-24 22:47] VITALS: O2SAT 91
--- NOTE | 2021-05-24 22:47 | PC.NURSE ---
patient was removed from O2 and O2 sat dropped to 91%- pt became SOB and was speaking short sentences, O2 was reapplied and patients O2 sat returned to 95% and patients SOB was relieved-speaking in full sentences.
[2021-05-24] MEDS: Furosemide 100 MG/10 ML VIAL 60 MG IVPUSH (23:00)
[2021-05-24 23:13] LABS: Glucose Urine UA NEG (NEG); Leukocyte Esterase Urine NEG (NEG); Nitrite Urine NEG (NEG); Urine Blood NEG (NEG); Urine Ketones NEG (NEG); Urine Protein TRACE MG/DL (NEG-TRACE)
[2021-05-24 23:22] LABS: Appearance Urine CLEAR; Color Urine YELLOW
[2021-05-24 23:41] VITALS: BP 131/55; PULSE 76; RESP 24; O2SAT 86
[2021-05-25] VITALS (8 sets, daily range): BP systolic 109–127; BP diastolic 52–62; PULSE 61–89; RESP 15–20; TEMP 36.1–36.6; O2SAT 90–98; BMI 22.5
[2021-05-25] MEDS: Potassium Chloride/H20 10 MEQ/100 ML PIGGYBACK 100 MEQ IV ×2 (00:35→02:59)
--- NOTE | 2021-05-25 00:43 | PC.NURSE ---
RN started Potassium 10meq per order at 100ml/hr however within a minute pt reported intense burning sensation to the IV site. Upon assessment IV site observed to be patent and without s/s of complications noted. RN slowed the rate of infusion from 100ml/hr to 75 ml/hr however the member continued to report severe discomfort. RN slowed the infusion down to 52.37ml/hr and switched from the right arm to the left arm for access with improvement in discomfort noted. Pt aware to notify RN if burning sensation becomes to uncomfortable.
--- NOTE | 2021-05-25 00:50 | CA_ITS ---
Transthoracic Echocardiogram Patient (Last, First, Middle): Ronaldo Mejia, Gender: Male Date of : 1950 Age: 71 Procedure Date: 05/25/2021 Procedure Type: Transthoracic Echocardiogram [place] [facility] [place] Height: 175.26 cm Weight: 83.01 kg BSA: 1.99 m2 Heart Rate: bpm BP: 115 / 62 mmHg Geriatric Physical Therapist: Referring MD: Maximo Mckee MD Symptoms: chf Study Quality: Fair ECG Rhythm: Ventriculary paced rhythm Conclusions: - The left ventricular systolic function is mildly decreased. The visually estimated ejection fraction is between 45-50%. - The basal inferior segment is akinetic. - There is mild to moderate mitral valve regurgitation. - Mild pulmonary hypertension is present. Findings Left Ventricle Normal left ventricular cavity size. There is moderately increased left ventricular wall thickness. The left ventricular systolic function is mildly decreased. The visually estimated ejection fraction is between 45-50%. There is evidence of regional wall motion abnormalities. Diastolic function is indeterminate on the basis of available data. E/E prime ratio is >15, consistent with elevated filling pressures. Wall Motion Rest Echo Findings The basal inferior segment is akinetic. Right Ventricle Normal right ventricular cavity size and systolic function. There is a pacemaker wire seen in the right ventricle. Atria The left atrium is mildly dilated. The right atrium is normal in size. Aortic Valve The aortic valve was not well visualized. There is no aortic valve stenosis. There is no aortic valve regurgitation. Mitral Valve There is mild mitral annular calcification. There is mild to moderate mitral valve regurgitation. There is no mitral valve stenosis. Pulmonic Valve The pulmonic valve was not well visualized. Tricuspid Valve Normal tricuspid valve structure. There is trace tricuspid valve regurgitation. The right ventricular systolic pressure is 40 mmHg. Mild pulmonary hypertension is present. Great Vessels The asc aorta is normal in size. Venous The inferior vena cava is normal in size and collapses greater than 50% with inspiration. Pericardium/Pleural There is no evidence of pericardial effusion. Prior Study Comparison Changes noted compared to prior study dated: 07/09/2020. LVEF appears lower. Measurements 2D Linear Measurements IVSd: 1.54 0.6-0.9/0.6-1.0 cm LVIDd: 4.48 3.9-5.3/4.2-5.9 cm LVIDd Index: 2.25 2.4-3.2/2.2-3.1 cm/m2 LVIDs: 4.01 2.0-3.6 cm LVPWd: 1.47 0.7-1.1 cm Ao Root: 3.60 2.1-3.5 cm LA Diam: 5.00 2.7-3.8/3.0-4.0 cm LAIDs Index: 2.51 1.5-2.3 cm/m2 LV Mass: 343.49 67-162/88-224 g LV Mass Index: 172.61 43-95/49-115 g/m2 LVOT Diam: 2.40 3.0+(-)1.3 cm 2D Systolic Function EF 4C: 28.10 >55% EF 2C: 40.50 >55% EF BiP: 33.80 >55% Mitral Valve MV Pk E: 1.17 MV PK A: 0.25 MV Decel Time: 187.00 E/A: 4.70 E'Lateral: 12.60 E'Medial: 6.09 E/E' Med: 19.20 E/E' Lat: 9.30 PHT: 55.00 MVA PHT: 4.00 Decel [place]: 6.27 Aortic Valve AoV Pk Jeff: 1.39 AoV Mn Jeff: 0.89 AoV VTI: 0.29 AoV Pk Grad: 8.00 Aov Mn Grad: 4.00 MIRELLA Cont.VTI: 2.66 LVOT LVOT Pk Jeff: 0.80 LVOT Mn Jeff: 0.52 LVOT VTI: 0.17 LVOT Pk Grad: 3.00 LVOT Mn Grad: 1.00 LVOT Diam: 2.40 LVOT Area: 4.52 Diastolic Function MV Pk E: 1.17 MV Pk A: 0.25 E/A: 4.70 E'Medial: 6.09 E/E' Med: 19.20 E' Laterial: 12.60 E/E' Lat: 9.30 Tricuspid Valve TR Pk Jeff: 2.74 TR Pk Grad: 30.00 RA Press: 3.00 RVSP: 40.00 Great Vessels Aorta Ao Root-2D: 3.60 2.0-3.7 cm Ao Asc: 3.50 2.1-3.4 cm Pulmonary Valve PV Pk Jeff: 0.87 Peak PV Grad: 3.00 Updated in Other Vendor System with Status of Final Sergio Ramirez MD electronically signed on 05/25/2021 4:22:48 PM with status of Final
[2021-05-25] MEDS: Acetaminophen 325 MG TABLET 650 MG PO (04:48)
--- NOTE | 2021-05-25 04:50 | PC.NURSE ---
1 time dose of tylenol 650mg given per pt's request for reports of leg jerking . Pt explains that he takes tylenol at home to assist with leg jerking as needed adding that normally when at home he can walk it off however is limited. pt without distress noted at this time; warm blanket provided. Pt has call bolivar in reach; O2 sat in the high 90s on 3LPM via [place]. Report provided to kervin BOYER
--- NOTE | 2021-05-25 05:23 | P.HPHOSP_ITS ---
History of Present Illness Date of Service: 05/25/21 Chief Complaint: Shortness of breath This is a 71-year-old male with past medical history of CHF, AFib, CAD status post DC and stent in the anterior descending branch of the left coronary artery, HTN, heart failure with preserved ejection fraction, history of permanent cardiac pacemaker, type 2 diabetes presents to the hospital with complaints of shortness of breath. Patient reports his symptoms started about 2 weeks ago, worsened over the past few days. Reports minimal effort with significant shortness of breath. He he cannot walk more than 100 ft without becoming short of breath and needing to rest to catch his breath. He reports a dry cough mostl y when he is lying flat, orthopnea, PND, has not noticed any swelling in his legs. Patient reports compliance with his Lasix 40 mg daily but reports consuming salty food. Denies any chest pain, no abdominal pain, no urinary symptoms and no numbness weakness or tingling. Vitals are significant for hypoxia with oxygen down to the mid 80s even on 3 L of oxygen while talking to me. Otherwise does normal Labs are significant for WBC count of 6.0, hemoglobin of 9.7 that dropped from 11.4 , hematocrit of 28.4, in December, MCV of 100.7, PT of 31.1, INR of 2.7, PTT of 45.2, potassium of 3.2, BUN 21, creatinine of 1.73 with a baseline of 1.17 in December of 2020, BNP of 869, UA negative. Troponin negative, COVID-19 negative EKG shows sinus rhythm with first-degree AV block with PACs, QTC of 497, ST and T-wave abnormality seen on previous EKG Shows stable examination without evidence of acute pulmonary process Past medical history as below and confirmed with patient Review of Systems Review of Systems: Yes all other systems are reviewed and are negative FOR[facility]LY [facility] Medical History Atherosclerotic heart disease Atrial fibrillation, chronic Coronary artery arteriosclerosis Essential hypertension Heart failure with preserved ejection fraction Hx of placement of stent in anterior descending branch of left coronary artery Normally functioning cardiac pacemaker present Other and unspecified hyperlipidemia Pacemaker Persistent atrial fibrillation Type 2 diabetes mellitus with unspecified complications Family History Father CVD (cardiovascular disease) Surgical History History of permanent cardiac pacemaker placement Hx of cardiac cath Stented coronary artery Social History Alcohol intake: former Patient Tobacco Use Status: Former Tobacco user Use of substances other than those prescribed or required for medical reasons: No Advance Directives: No Advance Directives Information Provided: Yes Meds Allergies Allergy/AdvReac Type Severity Reaction Status Date / Time lisinopril [LISINOPRIL] Allergy Severe COUGH/ANGIO Verified 08/03/20 10:09 EDEMA Active Medications: Current Medications Generic Name Dose Route Start Last Admin Trade Name Freq PRN Reason Stop Dose Admin Acetaminophen 650 mg 05/25/21 00:50 Acetaminophen 325 Mg Tablet PO Q6H PRN Pain, Mild (Pain Scale 1-3) Albuterol/Ipratropium 3 ml 05/25/21 00:50 Albuterol/Iprat 2.5/0.5mg 3 Ml Ampul.Neb INHALE RQ4H PRN Shortness of Breath/Wheezing Amlodipine Besylate 10 mg 05/25/21 09:00 Amlodipine Besylate 10 Mg Tablet PO DAILY [facility] Protocol Atorvastatin Calcium 80 mg 05/25/21 09:00 Atorvastatin Calcium 80 Mg Tablet PO DAILY [facility] Clopidogrel Bisulfate 75 mg 05/25/21 09:00 Clopidogrel Bisulfate 75 Mg Tablet PO DAILY [facility] Docusate Sodium 100 mg 05/25/21 00:50 Docusate Sodium 100 Mg Capsule PO DAILY PRN Constipation Furosemide 40 mg 05/25/21 09:00 Furosemide 40 Mg/4 Ml Vial IVPUSH BID@0900,1800 [facility] Protocol Insulin Human Lispro 0 unit 05/25/21 07:30 Insulin Lispro 100 Unit/Ml 3 Ml Vial SUBCUT QIDACHS [facility] Protocol Levothyroxine Sodium 150 mcg 05/25/21 06:00 Levothyroxine Sodium 150 Mcg Tablet PO DAILY@0600 [facility] Metoprolol Succinate 100 mg 05/25/21 09:00 Metoprolol Succinate Er 100 Mg Tab.Er.24h PO DAILY [facility] Protocol Omeprazole 20 mg 05/25/21 09:00 Omeprazole 20 Mg Capsule.Dr PO DAILY [facility] Ondansetron HCl 4 mg 05/25/21 00:50 Ondansetron Hcl 4 Mg/2 Ml Vial IVPUSH Q8H PRN Nausea and Vomiting Ranolazine 500 mg 05/25/21 00:50 05/25/21 04:55 Ranolazine 500 Mg Tab.Er.12h PO Not Given BID [facility] Sodium Chloride 3 ml 05/25/21 08:00 0.9 % Sodium Chloride Flush 3 Ml Syringe IVFLUSH QSHIFT [facility] Spironolactone 25 mg 05/25/21 09:00 Spironolactone 25 Mg Tablet PO DAILY [facility] Protocol Warfarin Sodium 3 mg 05/25/21 09:00 Warfarin Sodium 3 Mg Tablet PO DAILY [facility] Home Medications Medication Instructions Recorded Confirmed Last Taken Type albuterol sulfate 90 mcg/actuation INHALATION 08/03/20 09/11/20 05/24/21 History aerosol inhaler tiotropium bromide 2.5 INHALATION 08/03/20 09/11/20 05/24/21 History mcg/actuation mist for inhalation amlodipine 10 mg tablet 10 mg PO DAILY tab 08/12/20 05/24/21 05/24/21 08:00 History atorvastatin 80 mg tablet 80 mg PO DAILY tab 08/12/20 05/24/21 05/24/21 17:00 History clopidogrel 75 mg tablet 75 mg PO DAILY tab 08/12/20 05/24/21 05/24/21 08:00 History furosemide 40 mg tablet 40 mg PO DAILY tab 08/12/20 05/24/21 05/24/21 08:00 History isosorbide mononitrate 30 mg 30 mg PO DAILY tab 08/12/20 05/24/21 05/24/21 08:00 History tablet,extended release 24 hr levothyroxine 150 mcg tablet 150 mcg PO DAILY tab 08/12/20 05/24/21 05/24/21 08:00 History metformin 500 mg tablet 500 mg PO tab 08/12/20 09/11/20 05/23/21 History omeprazole 20 mg capsule,delayed 20 mg PO DAILY cap 08/12/20 05/24/21 05/24/21 17:00 History release spironolactone 25 mg tablet 25 mg PO DAILY tab 08/12/20 05/24/21 05/24/21 08:00 History warfarin 1 mg tablet 1 mg PO DIRECTED tab 08/12/20 05/24/21 05/24/21 17:00 History warfarin 3 mg tablet 3 mg PO DIRECTED tab 08/12/20 05/24/21 05/24/21 17:00 History Physical Exam Vital Signs and Narrative: Vital Signs: Last Vital Signs Temp 98.1 F 05/24/21 21:24 Pulse 61 05/25/21 00:50 Resp 18 05/25/21 00:50 BP 109/52 L 05/25/21 00:50 Pulse Ox 90 L 05/25/21 00:50 Body Mass Index 26.9 Const: General: cooperative and no acute distress Orientation/consciousness: patient oriented x3 Eyes: General: appearance normal, both eyes and all related structures Resp: Effort & Inspection: normal respiratory effort and able to speak in complete sentences Cardio: Rate: regular rate Rhythm: regular rhythm GI: Palpation (GI): Soft to palpation Auscultation: normal bowel sounds Skin: General skin exam: no rashes or lesions noted Neuro: General: patient oriented x3 Cognition (Neuro): normal cognition Extrem: Other: A 1+ edema to the manjarrez bilaterally General: Yes normal to inspection Results Labs CBC and Chem 7: 05/24/21 21:38 05/24/21 21:38 Labs: Laboratory Results - last 24 hr 05/24/21 05/24/21 05/24/21 21:38 21:38 21:38 MCV 100.7 H MCH 34.4 H MCHC 34.2 RDW 14.6 Plt Count 239 MPV 8.6 L Immature Gran % (Auto) 0.3 Neut % (Auto) 70.6 Lymph % (Auto) 16.1 L Bryan % (Auto) 10.9 Eos % (Auto) 1.8 Baso % (Auto) 0.3 Lymph # (Auto) 1.0 L Bryan # (Auto) 0.7 Eos # (Auto) 0.1 Baso # (Auto) 0.0 Abs Immat Gran (auto) 0.02 Absolute Neuts (auto) 4.3 Absolute Nucleated RBC 0.000 Nucleated RBC % (auto) 0.0 PT INR APTT VBG pH VBG pCO2 VBG pO2 VBG HCO3 VBG O2 Saturation VBG Base Excess Anion Gap 15 Estim Creat Clear Calc 38.5 Estimated GFR 39 Random Glucose 116 H Calcium 8.9 Troponin I High Sens B-Natriuretic Peptide Urine Color Urine Appearance Urine pH Ur Specific [place] Urine Protein Urine Glucose (UA) Urine Ketones Urine Blood Urine Nitrite Ur Leukocyte Esterase COVID-19 (ANDRES) Negative COVID-19 [employer] See Note 05/24/21 05/24/21 05/24/21 21:38 22:03 22:03 MCV MCH MCHC RDW Plt Count MPV Immature Gran % (Auto) Neut % (Auto) Lymph % (Auto) Bryan % (Auto) Eos % (Auto) Baso % (Auto) Lymph # (Auto) Bryan # (Auto) Eos # (Auto) Baso # (Auto) Abs Immat Gran (auto) Absolute Neuts (auto) Absolute Nucleated RBC Nucleated RBC % (auto) PT 31.1 H INR 2.7 H APTT 45.2 H VBG pH Cancelled VBG pCO2 Cancelled VBG pO2 Cancelled VBG HCO3 Cancelled VBG O2 Saturation Cancelled VBG Base Excess Cancelled Anion Gap Estim Creat Clear Calc Estimated GFR Random Glucose Calcium Troponin I High Sens 9.3 B-Natriuretic Peptide 869 H Urine Color Urine Appearance Urine pH Ur Specific [place] Urine Protein Urine Glucose (UA) Urine Ketones Urine Blood Urine Nitrite Ur Leukocyte Esterase COVID-19 (ANDRES) [id number] 05/24/21 05/24/21 22:10 22:59 MCV MCH MCHC RDW Plt Count MPV Immature Gran % (Auto) Neut % (Auto) Lymph % (Auto) Bryan % (Auto) Eos % (Auto) Baso % (Auto) Lymph # (Auto) Bryan # (Auto) Eos # (Auto) Baso # (Auto) Abs Immat Gran (auto) Absolute Neuts (auto) Absolute Nucleated RBC Nucleated RBC % (auto) PT INR APTT VBG pH 7.40 VBG pCO2 25 VBG pO2 44 VBG HCO3 16 L VBG O2 Saturation 69.0 VBG Base Excess TNP Anion Gap Estim Creat Clear Calc Estimated GFR Random Glucose Calcium Troponin I High Sens B-Natriuretic Peptide Urine Color YELLOW Urine Appearance CLEAR Urine pH 6.0 Ur Specific [place] 1.020 Urine Protein TRACE Urine Glucose (UA) NEG Urine Ketones NEG Urine Blood NEG Urine Nitrite NEG Ur Leukocyte Esterase NEG COVID-19 (ANDRES) [id number] Imaging Radiologist's Impressions: Impressions Chest X-Ray 05/24/21 21:02 IMPRESSION: Stable examination without evidence of acute pulmonary process. Assessment and Plan (1) CHF exacerbation: Status: Acute (2) Acute respiratory failure with hypoxia: Status: Acute (3) PAGE (dyspnea on exertion): Status: Acute (4) DARREN (acute kidney injury): Status: Acute (5) Macrocytic anemia: Status: Acute (6) Prolonged QT interval: Status: Acute 71-year-old male with past medical history of CHF presents to the hospital with shortness of breath # acute CHF exacerbation - most likely secondary to noncompliant with diet - has elevated BNP, dyspnea on exertion, lower extremity - no elevated troponin or new EKG changes - will start him on Lasix IV 40 b.i.d. - strict I&O, daily weight, low-sodium diet - cardiology consult - echocardiogram # acute hypoxic respiratory failure - secondary to CHF unlikely to be secondary to COPD. Patient does not have any sputum production, no wheeze - will treat with oxygen - DuoNeb as needed for dyspnea/wheezing - titrate oxygen off as tolerated # DARREN - most likely secondary to acute CHF exacerbation - will treat with Lasix - follow BMP # macrocytic anemia - hemoglobin dropped from 11.4-9.7 within last 3 months, elevated MCV - will obtain B12, folic acid, ferritin and stool occult blood test - monitor CBC - patient on Coumadin for AFib with therapeutic INR # prolonged QT - has hypokalemia which was repleted in the ED - will repeat BMP, obtain magnesium - avoid QT prolonging medication # AFib - as there is no acute significant bleed, will continue clopidogrel and warfarin - continue metoprolol - PT INR daily # hypertension - on the lower side -continue amlodipine, hold hydralazine, Imdur, and spironolactone as patient's blood pressure on the soft side and has DARREN - can resume BP medications once kidney function more stable on blood pressure also more stay # CAD status post stent - continue clopidogrel - continues metoprolol, statin DVT prophylaxis warfarin Quality Stroke Does the patient have a stroke diagnosis?: No VTE Prior VTE?: No VTE Risk Level:: Medical - moderate - high VTE Device Contraindication: Treatment Not Indicated VTE Drug Contraindication: N/A - Med Ordered
[2021-05-25 07:29] LABS: INTERNATIONAL NORM RATIO 2.9 (0.9-1.1); Prothrombin Time 34.3 SEC (9.9-13.0)
--- NOTE | 2021-05-25 07:42 | PC.NURSE ---
Patient is alert and oriented. No distress noted. Pt denies any pain or sob this morning. breakfast tray given to patient
[2021-05-25 07:45] LABS: Magnesium 1.6 mg/dL (1.6-2.6)
[2021-05-25 08:05] LABS: Ferritin 117 ng/mL (20-250)
[2021-05-25 08:11] LABS: Glucose, Whole Blood 129 mg/dL (60-115)
[2021-05-25 08:24] LABS: Folate 6.4 ng/mL (> or = 4.0); Vitamin B12 423 pg/mL (200-900)
[2021-05-25] MEDS: Omeprazole 20 MG CAPSULE.DR PO (08:38)
[2021-05-25] MEDS: Levothyroxine Sodium 150 MCG TABLET PO (08:38)
[2021-05-25] MEDS: amLODIPine Besylate 10 MG TABLET PO (08:38)
[2021-05-25] MEDS: Atorvastatin Calcium 80 MG TABLET PO (08:38)
[2021-05-25] MEDS: Metoprolol Succinate ER 100 MG TAB.ER.24H PO (08:38)
[2021-05-25] MEDS: Clopidogrel Bisulfate 75 MG TABLET PO (08:39)
[2021-05-25] MEDS: Furosemide 40 MG/4 ML VIAL IVPUSH ×2 (08:42→20:26)
[2021-05-25] MEDS: 0.9 % Sodium Chloride Flush 3 ML SYRINGE IVFLUSH ×2 (09:00→17:21)
--- NOTE | 2021-05-25 09:04 | MHC.CM.PN ---
Attempted to meet with patient in regards to discharge planning. Nursing care currently being provided. Spoke with patient's sig other/HCP, Susie via telephone at [phone]. Patient lives with Susie, ambulates independently and had no services prior to coming to the [facility]. Patient's PCP is Dr Tom. Copy of HCP and MLOST obtained from Dr Tom's office. Per Susie, they were supposed to be moving to [place] in about 10 days. But she is not sure when this will happen. Dr Tom recommended patient come to the ER last Monday due to being short of breath. Per Susie, patient is stubborn and refused to go until yesterday. IMM explained and left at patient's bedside. Patient received 2 doses of Moderna vaccine. No services anticipated to be need at discharge at this time. Susie will trasnport patient home when medically stable. Continue to monitor for d/c needs.
--- NOTE | 2021-05-25 10:07 | PC.NURSE ---
Cycle Counter at bedside
--- NOTE | 2021-05-25 10:42 | PM.CNCAR ---
History of Present Illness History of Present Illness Date of Service: 05/25/21 Consult reason: congestive heart failure Chief complaint: CHF Narrative: This is a cardiology consultation regarding congestive heart failure. Patient has been having increasing shortness of breath recently and also sensation of weakness and cough which led to this hospitalization. No significant leg swelling. No anginal-type symptoms. Otherwise, he has a history of coronary artery disease and left main stenting in 2017. 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 Review of Systems Review of Systems: Yes all other systems are reviewed and are negative Cardiovascular: Cardiovascular: Reports as per HPI, Reports no additional cardiovascular complaints, Denies acrocyanosis, Denies cool extremities, Denies painful fingertips, Denies chest pain, Denies chest pain at rest, Denies diaphoresis, Denies syncope, Denies irregular heart rhythm, Denies claudication, Denies leg edema, Denies lightheadedness, Denies palpitations, Reports dyspnea and Reports dyspnea on exertion Respiratory: Respiratory: Reports dyspnea and Reports dyspnea on exertion Neurologic: Denies syncope Endocrine: Endocrine: Denies palpitations [facility] Past Medical History Medical History Atherosclerotic heart disease Atrial fibrillation, chronic Coronary artery arteriosclerosis Essential hypertension Heart failure with preserved ejection fraction Hx of placement of stent in anterior descending branch of left coronary artery Normally functioning cardiac pacemaker present Other and unspecified hyperlipidemia Pacemaker Persistent atrial fibrillation Type 2 diabetes mellitus with unspecified complications Family History Family History Father CVD (cardiovascular disease) Surgical History Surgical History History of permanent cardiac pacemaker placement Hx of cardiac cath Stented coronary artery Social History Social History Alcohol intake: former Patient Tobacco Use Status: Former Tobacco user Use of substances other than those prescribed or required for medical reasons: No Advance Directives: No Advance Directives Information Provided: Yes service: No Current occupational status: retired Meds Allergies Allergy/AdvReac Type Severity Reaction Status Date / Time lisinopril [LISINOPRIL] Allergy Severe COUGH/ANGIO Verified 08/03/20 10:09 EDEMA Active Medications: Current Medications Generic Name Dose Route Start Last Admin Trade Name Dereck PRN Reason Stop Dose Admin Acetaminophen 650 mg 05/25/21 00:50 Acetaminophen 325 Mg Tablet PO Q6H PRN Pain, Mild (Pain Scale 1-3) Albuterol/Ipratropium 3 ml 05/25/21 00:50 Albuterol/Iprat 2.5/0.5mg 3 Ml Ampul.Neb INHALE RQ4H PRN Shortness of Breath/Wheezing Amlodipine Besylate 10 mg 05/25/21 09:00 05/25/21 08:38 Amlodipine Besylate 10 Mg Tablet PO 10 mg DAILY [facility] Administration Protocol Atorvastatin Calcium 80 mg 05/25/21 09:00 05/25/21 08:38 Atorvastatin Calcium 80 Mg Tablet PO 80 mg DAILY [facility] Administration Clopidogrel Bisulfate 75 mg 05/25/21 09:00 05/25/21 08:39 Clopidogrel Bisulfate 75 Mg Tablet PO 75 mg DAILY [facility] Administration Docusate Sodium 100 mg 05/25/21 00:50 Docusate Sodium 100 Mg Capsule PO DAILY PRN Constipation Furosemide 40 mg 05/25/21 09:00 05/25/21 08:42 Furosemide 40 Mg/4 Ml Vial IVPUSH 40 mg BID@0900,1800 [facility] Administration Protocol Insulin Human Lispro 0 unit 05/25/21 07:30 05/25/21 08:41 Insulin Lispro 100 Unit/Ml 3 Ml Vial SUBCUT Not Given QIDACHS [facility] Protocol Levothyroxine Sodium 150 mcg 05/25/21 06:00 05/25/21 08:38 Levothyroxine Sodium 150 Mcg Tablet PO 150 mcg DAILY@0600 [facility] Administration Metoprolol Succinate 100 mg 05/25/21 09:00 05/25/21 08:38 Metoprolol Succinate Er 100 Mg Tab.Er.24h PO 100 mg DAILY [facility] Administration Protocol Omeprazole 20 mg 05/25/21 09:00 05/25/21 08:38 Omeprazole 20 Mg Capsule.Dr PO 20 mg DAILY [facility] Administration Ranolazine 500 mg 05/25/21 00:50 05/25/21 04:55 Ranolazine 500 Mg Tab.Er.12h PO Not Given BID [facility] Sodium Chloride 3 ml 05/25/21 08:00 0.9 % Sodium Chloride Flush 3 Ml Syringe IVFLUSH QSHIFT [facility] Warfarin Sodium 3 mg 05/25/21 09:00 Warfarin Sodium 3 Mg Tablet PO DAILY [facility] Home Medications Medication Instructions Recorded Confirmed Last Taken Type albuterol sulfate 90 mcg/actuation INHALATION 08/03/20 09/11/20 05/24/21 History aerosol inhaler tiotropium bromide 2.5 INHALATION 08/03/20 09/11/20 05/24/21 History mcg/actuation mist for inhalation amlodipine 10 mg tablet 10 mg PO DAILY tab 08/12/20 05/24/21 05/24/21 08:00 History atorvastatin 80 mg tablet 80 mg PO DAILY tab 08/12/20 05/24/21 05/24/21 17:00 History clopidogrel 75 mg tablet 75 mg PO DAILY tab 08/12/20 05/24/21 05/24/21 08:00 History furosemide 40 mg tablet 40 mg PO DAILY tab 08/12/20 05/24/21 05/24/21 08:00 History isosorbide mononitrate 30 mg 30 mg PO DAILY tab 08/12/20 05/24/21 05/24/21 08:00 History tablet,extended release 24 hr levothyroxine 150 mcg tablet 150 mcg PO DAILY tab 08/12/20 05/24/21 05/24/21 08:00 History metformin 500 mg tablet 500 mg PO BEDTIME tab 08/12/20 05/25/21 05/23/21 History omeprazole 20 mg capsule,delayed 20 mg PO DAILY cap 08/12/20 05/24/21 05/24/21 17:00 History release spironolactone 25 mg tablet 25 mg PO DAILY tab 08/12/20 05/24/21 05/24/21 08:00 History warfarin 3 mg tablet 3 mg PO DIRECTED tab 08/12/20 05/24/21 05/24/21 17:00 History Physical Exam Vital Signs: Vital Signs: Last Vital Signs Temp 98.1 F 05/24/21 21:24 Pulse 72 05/25/21 08:38 Resp 18 05/25/21 07:40 BP 118/62 05/25/21 08:38 Pulse Ox 95 05/25/21 07:40 Body Mass Index 26.9 Const: General: cooperative and no acute distress HENMT: Other: Unremarkable Neck: Neck: Yes normal visual inspection Chest: Chest palpation & inspection: normal inspection of the chest Resp: Auscultation: clear to auscultation bilaterally, no crackles and no wheezes Cardio: Jugular venous distension: no JVD Palpation: normal PMI Heart sounds: S1 normal heart sound present, S2 normal heart sound present, no gallops, no murmurs and no rubs GI: Palpation (GI): Soft to palpation Back/Spine/Pelvis: Other: unremarkable Skin: General skin exam: no rashes or lesions noted Neuro: Cranial nerves: Yes Other cranial nerve findings present Extrem: General: Yes no clubbing, cyanosis or edema Psych: Mental Status: other Results Labs and Meds Result diagrams: 05/24/21 21:38 05/24/21 21:38 Lab results: Laboratory Results - last 24 hr 05/24/21 05/24/21 05/24/21 21:38 21:38 21:38 WBC 6.0 RBC 2.82 L Hgb 9.7 L Hct 28.4 L MCV 100.7 H MCH 34.4 H MCHC 34.2 RDW 14.6 Plt Count 239 MPV 8.6 L Immature Gran % (Auto) 0.3 Neut % (Auto) 70.6 Lymph % (Auto) 16.1 L [place] % (Auto) 10.9 Eos % (Auto) 1.8 Baso % (Auto) 0.3 Lymph # (Auto) 1.0 L [place] # (Auto) 0.7 Eos # (Auto) 0.1 Baso # (Auto) 0.0 Abs Immat Gran (auto) 0.02 Absolute Neuts (auto) 4.3 Absolute Nucleated RBC 0.000 Nucleated RBC % (auto) 0.0 PT INR APTT VBG pH VBG pCO2 VBG pO2 VBG HCO3 VBG O2 Saturation VBG Base Excess Sodium 144 Potassium 3.2 L Chloride 115 H Carbon Dioxide 17 L Anion Gap 15 BUN 21 H Creatinine 1.73 H Estim Creat Clear Calc 38.5 Estimated GFR 39 POC Glucose Random Glucose 116 H Calcium 8.9 Magnesium Ferritin Troponin I High Sens B-Natriuretic Peptide Vitamin B12 Folate Urine Color Urine Appearance Urine pH Ur Specific [place] Urine Protein Urine Glucose (UA) Urine Ketones Urine Blood Urine Nitrite Ur Leukocyte Esterase COVID-19 (ANDRES) Negative COVID-19 Clin Com See Note 05/24/21 05/24/21 05/24/21 21:38 22:03 22:03 WBC RBC Hgb Hct MCV MCH MCHC RDW Plt Count MPV Immature Gran % (Auto) Neut % (Auto) Lymph % (Auto) [place] % (Auto) Eos % (Auto) Baso % (Auto) Lymph # (Auto) [place] # (Auto) Eos # (Auto) Baso # (Auto) Abs Immat Gran (auto) Absolute Neuts (auto) Absolute Nucleated RBC Nucleated RBC % (auto) PT 31.1 H INR 2.7 H APTT 45.2 H VBG pH Cancelled VBG pCO2 Cancelled VBG pO2 Cancelled VBG HCO3 Cancelled VBG O2 Saturation Cancelled VBG Base Excess Cancelled Sodium Potassium Chloride Carbon Dioxide Anion Gap BUN Creatinine Estim Creat Clear Calc Estimated GFR POC Glucose Random Glucose Calcium Magnesium Ferritin Troponin I High Sens 9.3 B-Natriuretic Peptide 869 H Vitamin B12 Folate Urine Color Urine Appearance Urine pH Ur Specific [place] Urine Protein Urine Glucose (UA) Urine Ketones Urine Blood Urine Nitrite Ur Leukocyte Esterase COVID-19 (ANDRES) COVID-19 [employer] 05/24/21 05/24/21 05/25/21 22:10 22:59 07:12 WBC RBC Hgb Hct MCV MCH MCHC RDW Plt Count MPV Immature Gran % (Auto) Neut % (Auto) Lymph % (Auto) [place] % (Auto) Eos % (Auto) Baso % (Auto) Lymph # (Auto) [place] # (Auto) Eos # (Auto) Baso # (Auto) Abs Immat Gran (auto) Absolute Neuts (auto) Absolute Nucleated RBC Nucleated RBC % (auto) PT 34.3 H INR 2.9 H APTT VBG pH 7.40 VBG pCO2 25 VBG pO2 44 VBG HCO3 16 L VBG O2 Saturation 69.0 VBG Base Excess TNP Sodium Potassium Chloride Carbon Dioxide Anion Gap BUN Creatinine Estim Creat Clear Calc Estimated GFR POC Glucose Random Glucose Calcium Magnesium Ferritin Troponin I High Sens B-Natriuretic Peptide Vitamin B12 Folate Urine Color YELLOW Urine Appearance CLEAR Urine pH 6.0 Ur Specific [place] 1.020 Urine Protein TRACE Urine Glucose (UA) NEG Urine Ketones NEG Urine Blood NEG Urine Nitrite NEG Ur Leukocyte Esterase NEG COVID-19 (ANDRES) COVID-19 [employer] Com 05/25/21 05/25/21 05/25/21 07:12 07:12 08:02 WBC RBC Hgb Hct MCV MCH MCHC RDW Plt Count MPV Immature Gran % (Auto) Neut % (Auto) Lymph % (Auto) [place] % (Auto) Eos % (Auto) Baso % (Auto) Lymph # (Auto) [place] # (Auto) Eos # (Auto) Baso # (Auto) Abs Immat Gran (auto) Absolute Neuts (auto) Absolute Nucleated RBC Nucleated RBC % (auto) PT INR APTT VBG pH VBG pCO2 VBG pO2 VBG HCO3 VBG O2 Saturation VBG Base Excess Sodium Potassium Chloride Carbon Dioxide Anion Gap BUN Creatinine Estim Creat Clear Calc Estimated GFR POC Glucose 129 H Random Glucose Calcium Magnesium 1.6 Ferritin 117 Troponin I High Sens B-Natriuretic Peptide Vitamin B12 423 Folate 6.4 Urine Color Urine Appearance Urine pH Ur Specific [place] Urine Protein Urine Glucose (UA) Urine Ketones Urine Blood Urine Nitrite Ur Leukocyte Esterase COVID-19 (ANDRES) COVID-19 Clin Com ECG Attestation: I personally reviewed and interpreted this ECG as follows: Interpretation: EKG admission with sinus rhythm and markedly prolonged SD at 342 milliseconds and inverted Ts across the precordial leads as well as inferior leads. In the prior EKG from last year from our office, he was in ventricular paced rhythm Imaging Radiologist's impression: Impressions Chest X-Ray 05/24/21 21:02 IMPRESSION: Stable examination without evidence of acute pulmonary process. Assessment and Plan (1) Acute diastolic (congestive) heart failure: Status: Acute (2) Persistent atrial fibrillation: Status: Acute (3) Atherosclerotic cardiovascular disease: Status: Acute (4) Normally functioning cardiac pacemaker present: Status: Acute Clinically, he does not appear much volume overload. Per input output chart, he is negative approximately 500 mL. Clinically does not appear volume overloaded. Based on recent thoracic impedance, values are fairly stable. Cardiac BNP is elevated to 869. High sensitivity troponins are negative. Chest x-ray is not showing anything acute. However, based on a prior thoracic surgery consult, he does have a history of pulmonary nodule. May try empiric diuretics. Consider CT scan of chest. Will follow up with you. Procedures Date of Service Date of Service: 05/25/21
[2021-05-25 10:47] LABS: Anion Gap 13 (12-20); Blood Urea Nitrogen 17 mg/dL (9-16); Calcium 8.8 mg/dL (8.4-10.2); Carbon Dioxide 19 mmol/L (22-29); Chloride 113 mmol/L (96-108); Creatinine Clr Calc Pharmacy 44.5; Estimated Glomerular Filt Rate 46; Glucose Random 113 mg/dL (60-115); Potassium 3.3 mmol/L (3.3-5.1); Sodium 142 mmol/L (135-145)
--- NOTE | 2021-05-25 11:00 | PC.NURSE ---
Patient is asleep in bed in no acute distress
[2021-05-25 11:29] LABS: Hemoglobin 10.5 g/dl (14.0-18.0); Mean Corpuscular HGB Conc 32.8 g/dl (31.0-36.0); Mean Corpuscular Hemoglobin 33.1 pg (27.0-33.0); Mean Corpuscular Volume 100.9 fL (80-98); Mean Platelet Volume 8.5 fL (9.4-12.4); Platelet Count 240 X10*3/uL (160-400); Red Blood Count 3.17 X10*6/uL (4.60-5.80); Red Cell Distribution Width 14.4 % (11.0-16.0); White Blood Count 5.7 X10*3/uL (4.8-10.8)
--- NOTE | 2021-05-25 13:09 | PC.NURSE ---
Patient is alert and oriented. No distress noted. Pt to ct via stretcher
[2021-05-25 13:39] LABS: Glucose, Whole Blood 113 mg/dL (60-115)
[2021-05-25] MEDS: Ranolazine 500 MG TAB.ER.12H PO ×2 (15:18→20:23)
--- NOTE | 2021-05-25 15:20 | PC.NURSE ---
entry level lab technician at bedside for echocardiogram
--- NOTE | 2021-05-25 19:32 | PC.NURSE ---
report called to ROSALIND Castanon
--- NOTE | 2021-05-25 20:10 | PC.NURSE ---
REPORT GIVEN TO FLOOR BY DAVID BOYER BEFORE HER END OF SHIFT. PT TRANSPORTED TO FLOOR BY JING AMARO.
[2021-05-25 20:18] LABS: Glucose, Whole Blood 113 mg/dL (60-115)
[2021-05-25] MEDS: Warfarin Sodium 3 MG TABLET PO (20:25)
--- NOTE | 2021-05-25 21:27 | PC.NURSE ---
Pt to [facility] [place] ~2029. During admission pt did say he wasnt sure exactly what meds he was taking. I asked if he took them as prescribed and he said mostly When I gave pm meds pt didnt know what they were for - educated pt on pm meds. Warfarin was ~11 late due to not given in ED asked overnight MD if ok to give now- okayed to give with pm meds. Will pass on in rn report
--- NOTE | 2021-05-25 22:12 | PC.NURSE ---
pt was on 2L when to floor sat mid 90s- he took off o2 to go to bathroom and was PAGE - took o2 sat 83-85% immediately put o2 back on - recovered in a few min
[2021-05-26] VITALS (7 sets, daily range): BP systolic 91–126; BP diastolic 50–58; PULSE 66–82; RESP 16–20; TEMP 36–36.4; O2SAT 95–98
[2021-05-26] MEDS: Levothyroxine Sodium 150 MCG TABLET PO (06:14)
[2021-05-26 06:24] LABS: MANUAL DIFF FLAG NO
[2021-05-26 06:31] LABS: Basophils Percent Auto 0.4 % (0-2); Eosinophils Absolute Auto 0.2 X10*3/uL (0.0-0.4); Eosinophils Percent Auto 2.5 % (0-4); Hematocrit 33.6 % (42-52); Hemoglobin 11.2 g/dl (14.0-18.0); Imm Gran Abs Auto 0.03 X10*3/uL (0.00-0.03); Imm Gran Pct Auto 0.4 % (0.0-0.4); Lymphocytes Percent Auto 14.7 % (20-40); Mean Corpuscular HGB Conc 33.3 g/dl (31.0-36.0); Mean Corpuscular Hemoglobin 33.7 pg (27.0-33.0); Mean Corpuscular Volume 101.2 fL (80-98); Monocytes Absolute Auto 0.9 X10*3/uL (0.1-1.2); Monocytes Percent Auto 12.6 % (2-11); Neutrophils Absolute Auto 4.9 X10*3/uL (2.0-8.3); Neutrophils Percent Auto 69.4 % (45-73); Platelet Count 264 X10*3/uL (160-400); Red Blood Count 3.32 X10*6/uL (4.60-5.80); Red Cell Distribution Width 14.5 % (11.0-16.0); White Blood Count 7.1 X10*3/uL (4.8-10.8)
[2021-05-26 07:24] LABS: Glucose, Whole Blood 109 mg/dL (60-115)
[2021-05-26 07:25] LABS: Anion Gap 13 (12-20); Blood Urea Nitrogen 19 mg/dL (9-16); Calcium 9.5 mg/dL (8.4-10.2); Carbon Dioxide 23 mmol/L (22-29); Chloride 110 mmol/L (96-108); Creatinine Clr Calc Pharmacy 4.4; Estimated Glomerular Filt Rate 47; Glucose Random 103 mg/dL (60-115); Potassium 3.8 mmol/L (3.3-5.1); Sodium 142 mmol/L (135-145)
[2021-05-26 08:28] LABS: INTERNATIONAL NORM RATIO 3.7 (0.9-1.1); Prothrombin Time 43.1 SEC (9.9-13.0)
[2021-05-26] MEDS: Metoprolol Succinate ER 100 MG TAB.ER.24H PO (10:38)
[2021-05-26] MEDS: Ranolazine 500 MG TAB.ER.12H PO ×2 (10:38→20:56)
[2021-05-26] MEDS: amLODIPine Besylate 10 MG TABLET PO (10:38)
[2021-05-26] MEDS: Omeprazole 20 MG CAPSULE.DR PO (10:38)
[2021-05-26] MEDS: Clopidogrel Bisulfate 75 MG TABLET PO (10:38)
[2021-05-26] MEDS: 0.9 % Sodium Chloride Flush 3 ML SYRINGE IVFLUSH ×3 (10:39→20:56)
[2021-05-26] MEDS: Atorvastatin Calcium 80 MG TABLET PO (10:39)
[2021-05-26] MEDS: Furosemide 40 MG/4 ML VIAL IVPUSH ×2 (10:39→17:11)
[2021-05-26 11:13] LABS: Glucose, Whole Blood 131 mg/dL (60-115)
--- NOTE | 2021-05-26 11:40 | P.PNCA_ITS ---
Subjective Subjective Date of Service: 05/26/21 Interval history: Still short of breath, but better. Review of Systems Review of Systems Yes all other systems are reviewed and are negative Cardiovascular: Reports as per HPI, Reports no additional cardiovascular complaints, Denies acrocyanosis, Denies cool extremities, Denies painful fingertips, Denies chest pain, Denies chest pain at rest, Denies diaphoresis, Denies syncope, Denies irregular heart rhythm, Denies claudication, Denies leg edema, Denies lightheadedness, Denies palpitations, Reports dyspnea and Reports dyspnea on exertion Respiratory: Reports dyspnea and Reports dyspnea on exertion Denies syncope Endocrine: Denies palpitations Physical Exam Vital Signs: Last Vital Signs Temp 96.8 F 05/26/21 11:06 Pulse 72 05/26/21 11:06 Resp 16 05/26/21 11:06 BP 126/56 L 05/26/21 11:06 Pulse Ox 96 05/26/21 11:06 Body Mass Index 2.2 Const General: cooperative and no acute distress [facility] Other: Unremarkable Neck Neck: Yes normal visual inspection Chest Chest palpation & inspection: normal inspection of the chest Resp Auscultation: clear to auscultation bilaterally, no crackles and no wheezes Cardio Jugular venous distension: no JVD Palpation: normal PMI Heart sounds: S1 normal heart sound present, S2 normal heart sound present, no gallops, no murmurs and no rubs GI Palpation (GI): Soft to palpation Back/Spine/Pelvis Other: unremarkable Skin General skin exam: no rashes or lesions noted Neuro Cranial nerves: Yes Other cranial nerve findings present Extrem General: Yes no clubbing, cyanosis or edema Psych Mental Status: other Results Labs and Meds Result diagrams: 05/26/21 04:14 05/26/21 04:14 Lab results: Laboratory Results - last 24 hr 05/25/21 05/25/21 05/26/21 13:01 20:14 04:14 WBC 7.1 RBC 3.32 L Hgb 11.2 L Hct 33.6 L MCV 101.2 H MCH 33.7 H MCHC 33.3 RDW 14.5 Plt Count 264 MPV 9.0 L Immature Gran % (Auto) 0.4 Neut % (Auto) 69.4 Lymph % (Auto) 14.7 L [place] % (Auto) 12.6 H Eos % (Auto) 2.5 Baso % (Auto) 0.4 Lymph # (Auto) 1.0 L [place] # (Auto) 0.9 Eos # (Auto) 0.2 Baso # (Auto) 0.0 Abs Immat Gran (auto) 0.03 Absolute Neuts (auto) 4.9 Absolute Nucleated RBC 0.000 Nucleated RBC % (auto) 0.0 PT INR Sodium Potassium Chloride Carbon Dioxide Anion Gap BUN Creatinine Estim Creat Clear Calc Estimated GFR POC Glucose 113 113 Random Glucose Calcium 05/26/21 05/26/21 05/26/21 04:14 07:04 08:06 WBC RBC Hgb Hct MCV MCH MCHC RDW Plt Count MPV Immature Gran % (Auto) Neut % (Auto) Lymph % (Auto) [place] % (Auto) Eos % (Auto) Baso % (Auto) Lymph # (Auto) [place] # (Auto) Eos # (Auto) Baso # (Auto) Abs Immat Gran (auto) Absolute Neuts (auto) Absolute Nucleated RBC Nucleated RBC % (auto) PT 43.1 H D INR 3.7 H Sodium 142 Potassium 3.8 Chloride 110 H Carbon Dioxide 23 Anion Gap 13 BUN 19 H Creatinine 1.47 H Estim Creat Clear Calc 4.4 Estimated GFR 47 POC Glucose 109 Random Glucose 103 Calcium 9.5 D 05/26/21 11:06 WBC RBC Hgb Hct MCV MCH MCHC RDW Plt Count MPV Immature Gran % (Auto) Neut % (Auto) Lymph % (Auto) [place] % (Auto) Eos % (Auto) Baso % (Auto) Lymph # (Auto) [place] # (Auto) Eos # (Auto) Baso # (Auto) Abs Immat Gran (auto) Absolute Neuts (auto) Absolute Nucleated RBC Nucleated RBC % (auto) PT INR Sodium Potassium Chloride Carbon Dioxide Anion Gap BUN Creatinine Estim Creat Clear Calc Estimated GFR POC Glucose 131 H Random Glucose Calcium Imaging Radiologist's impression: Impressions Chest CT 05/25/21 13:15 IMPRESSION: Dependent bilateral lower and upper lobe patchy ground-glass opacities likely low-grade inflammatory or infectious etiology. No consolidation seen. There is a medial segment left apical dense opacity, likely inflammatory process. The nodule is considered less likely but cannot be excluded. Recommend follow-up CT chest in 3 months. 1 cm pretracheal lymph node. Solitary pacer electrode in the right ventricle. Small right pleural effusion and/or pleural thickening. Progress Note: A&P Assessment and plan (1) Acute diastolic (congestive) heart failure: Status: Acute (2) Persistent atrial fibrillation: Status: Acute (3) Atherosclerotic cardiovascular disease: Status: Acute (4) Normally functioning cardiac pacemaker present: Status: Acute Assessment and Plan: Clinically, he does not appear much volume overloaded. Per input output chart, he is negative approximately 2L. Clinically does not appear volume overloaded. Based on recent thoracic impedance, values are fairly stable. Cardiac BNP is elevated to 869. High sensitivity troponins are negative. Recommend a diagnostic catheterization to ensure patency of prior LM stent. Hold coumadin. Will follow. Fall Risk Details Current Medications: Current Medications Generic Name Dose Route Start Last Admin Trade Name Freq PRN Reason Stop Dose Admin Acetaminophen 650 mg 05/25/21 00:50 Acetaminophen 325 Mg Tablet PO Q6H PRN Pain, Mild (Pain Scale 1-3) Albuterol/Ipratropium 3 ml 05/25/21 00:50 Albuterol/Iprat 2.5/0.5mg 3 Ml Ampul.Neb INHALE RQ4H PRN Shortness of Breath/Wheezing Amlodipine Besylate 10 mg 05/25/21 09:00 05/26/21 10:38 Amlodipine Besylate 10 Mg Tablet PO 10 mg DAILY [facility] Administration Protocol Atorvastatin Calcium 80 mg 05/25/21 09:00 05/26/21 10:39 Atorvastatin Calcium 80 Mg Tablet PO 80 mg DAILY [facility] Administration Clopidogrel Bisulfate 75 mg 05/25/21 09:00 05/26/21 10:38 Clopidogrel Bisulfate 75 Mg Tablet PO 75 mg DAILY [facility] Administration Docusate Sodium 100 mg 05/25/21 00:50 Docusate Sodium 100 Mg Capsule PO DAILY PRN Constipation Furosemide 40 mg 05/25/21 09:00 05/26/21 10:39 Furosemide 40 Mg/4 Ml Vial IVPUSH 40 mg BID@0900,1800 [facility] Administration Protocol Guaifenesin/Dextromethorphan 5 ml 05/25/21 21:33 Guaifenesin Dm 100/10/5 Ml 5 Ml Syrup PO Q6H PRN Cough Insulin Human Lispro 0 unit 05/25/21 07:30 05/26/21 11:21 Insulin Lispro 100 Unit/Ml 3 Ml Vial SUBCUT Not Given QIDACHS [facility] Protocol Levothyroxine Sodium 150 mcg 05/25/21 06:00 05/26/21 06:14 Levothyroxine Sodium 150 Mcg Tablet PO 150 mcg DAILY@0600 [facility] Administration Metoprolol Succinate 100 mg 05/25/21 09:00 05/26/21 10:38 Metoprolol Succinate Er 100 Mg Tab.Er.24h PO 100 mg DAILY [facility] Administration Protocol Omeprazole 20 mg 05/25/21 09:00 05/26/21 10:38 Omeprazole 20 Mg Capsule.Dr PO 20 mg DAILY [facility] Administration Ranolazine 500 mg 05/25/21 00:50 05/26/21 10:38 Ranolazine 500 Mg Tab.Er.12h PO 500 mg BID [facility] Administration Sodium Chloride 3 ml 05/25/21 08:00 05/26/21 10:39 0.9 % Sodium Chloride Flush 3 Ml Syringe IVFLUSH 3 ml QSHIFT [facility] Administration Warfarin Sodium 3 mg 05/25/21 09:00 05/26/21 10:52 Warfarin Sodium 3 Mg Tablet PO Not Given DAILY [facility] Time Spent With Patient Time: Total time spent is greater than 50% in coordination of care (as documented) at patient's floor/unit and/or counseling patient: Time with patient: less than 15 minutes Progress Note: Quality Stroke Does the patient have a stroke diagnosis?: No Procedures Date of Service Date of Service: 05/26/21
--- NOTE | 2021-05-26 13:42 | HO.PM.IMPN ---
Subjective Subjective Date of Service: 05/26/21 Interval History: Seen in f/u for dyspnea, heart failure. He feels better today Review of Systems Gen: no fever Resp: no sob, no cough CV: no ches paint, + PAGE, no leg edema GI: No n/v, no abd pain Neuro: No confusion Physical Exam Vital Signs: Vital Signs: Last Vital Signs Temp 96.8 F 05/26/21 11:06 Pulse 72 05/26/21 11:06 Resp 16 05/26/21 11:06 BP 126/56 L 05/26/21 11:06 Pulse Ox 96 05/26/21 11:06 Body Mass Index 2.2 Const: General: cooperative and no acute distress Orientation/consciousness: patient oriented x3 Resp: Effort & Inspection: normal respiratory effort and able to speak in complete sentences Auscultation: clear to auscultation bilaterally, no crackles and no wheezes Cardio: Jugular venous distension: no JVD Rate: regular rate Rhythm: regular rhythm Heart sounds: S1 normal heart sound present, S2 normal heart sound present, no gallops and no murmurs GI: Palpation (GI): Soft to palpation Auscultation: normal bowel sounds Skin: General skin exam: no rashes or lesions noted Neuro: General: patient oriented x3 Extrem: Other: A 1+ edema to the manjarrez bilaterally General: Yes normal to inspection and Yes no clubbing, cyanosis or edema Objective Data Current Medications Generic Name Dose Route Start Last Admin Trade Name Freq PRN Reason Stop Dose Admin Acetaminophen 650 mg 05/25/21 00:50 Acetaminophen 325 Mg Tablet PO Q6H PRN Pain, Mild (Pain Scale 1-3) Albuterol/Ipratropium 3 ml 05/25/21 00:50 Albuterol/Iprat 2.5/0.5mg 3 Ml Ampul.Neb INHALE RQ4H PRN Shortness of Breath/Wheezing Amlodipine Besylate 10 mg 05/25/21 09:00 05/26/21 10:38 Amlodipine Besylate 10 Mg Tablet PO 10 mg DAILY [facility] Administration Protocol Atorvastatin Calcium 80 mg 05/25/21 09:00 05/26/21 10:39 Atorvastatin Calcium 80 Mg Tablet PO 80 mg DAILY [facility] Administration Clopidogrel Bisulfate 75 mg 05/25/21 09:00 05/26/21 10:38 Clopidogrel Bisulfate 75 Mg Tablet PO 75 mg DAILY [facility] Administration Docusate Sodium 100 mg 05/25/21 00:50 Docusate Sodium 100 Mg Capsule PO DAILY PRN Constipation Furosemide 40 mg 05/25/21 09:00 05/26/21 10:39 Furosemide 40 Mg/4 Ml Vial IVPUSH 40 mg BID@0900,1800 [facility] Administration Protocol Guaifenesin/Dextromethorphan 5 ml 05/25/21 21:33 Guaifenesin Dm 100/10/5 Ml 5 Ml Syrup PO Q6H PRN Cough Insulin Human Lispro 0 unit 05/25/21 07:30 05/26/21 11:21 Insulin Lispro 100 Unit/Ml 3 Ml Vial SUBCUT Not Given QIDACHS [facility] Protocol Levothyroxine Sodium 150 mcg 05/25/21 06:00 05/26/21 06:14 Levothyroxine Sodium 150 Mcg Tablet PO 150 mcg DAILY@0600 [facility] Administration Metoprolol Succinate 100 mg 05/25/21 09:00 05/26/21 10:38 Metoprolol Succinate Er 100 Mg Tab.Er.24h PO 100 mg DAILY [facility] Administration Protocol Omeprazole 20 mg 05/25/21 09:00 05/26/21 10:38 Omeprazole 20 Mg Capsule.Dr PO 20 mg DAILY [facility] Administration Ranolazine 500 mg 05/25/21 00:50 05/26/21 10:38 Ranolazine 500 Mg Tab.Er.12h PO 500 mg BID [facility] Administration Sodium Chloride 3 ml 05/25/21 08:00 05/26/21 10:39 0.9 % Sodium Chloride Flush 3 Ml Syringe IVFLUSH 3 ml QSHIFT [facility] Administration Labs CBC & Chem 7: 05/26/21 04:14 05/26/21 04:14 Assessment and Plan (1) Atherosclerotic cardiovascular disease: Status: Acute Assessment and Plan: 71-year-old male with past medical history of CHF presents to the hospital with shortness of breath # Acute CHF exacerbation, likely from non compliance with diet. Clinically better. IV Lasix , monitor BMP daily # Acute hypoxic respiratory failure likely combination of CHF and COPD -CHF management as above. -Duonebs, steroid for COPD # DARREN on CKD3, Creatine is better, continue monitoring. # macrocytic anemia - hemoglobin dropped from 11.4-9.7 within last 3 months, elevated MCV B12 and Folate normal # prolonged QT--Monitor, avoid meds that can make it worse. # AFib - as there is no acute significant bleed, will continue clopidogrel and warfarin - continue metoprolol - PT INR daily # hypertension - on the lower side -continue amlodipine, hold hydralazine, Imdur, and spironolactone as patient's blood pressure on the soft side and has DARREN - can resume BP medications once kidney function more stable on blood pressure also more stay # CAD status post stent in past - continue clopidogrel - continues metoprolol, statin -may have active CAD and will need diagnostic cath at [facility] [place], once INR is down holding INR and will be transfered to [facility] for cardiac cath DVT prophylaxis warfarin Quality Stroke Does the patient have a stroke diagnosis?: No VTE Prior VTE?: No VTE Risk Level:: Medical - moderate - high VTE Device Contraindication: Treatment Not Indicated VTE Drug Contraindication: N/A - Med Ordered
[2021-05-26 16:31] LABS: Glucose, Whole Blood 126 mg/dL (60-115)
[2021-05-26 20:02] LABS: Glucose, Whole Blood 101 mg/dL (60-115)
[2021-05-27] VITALS (7 sets, daily range): BP systolic 96–141; BP diastolic 52–72; PULSE 66–80; RESP 12–19; TEMP 36.1–36.8; O2SAT 91–98; BMI 23.6
[2021-05-27] MEDS: Levothyroxine Sodium 150 MCG TABLET PO (05:25)
[2021-05-27 07:15] LABS: Glucose, Whole Blood 100 mg/dL (60-115)
[2021-05-27] MEDS: Furosemide 40 MG/4 ML VIAL IVPUSH ×2 (08:25→17:28)
[2021-05-27] MEDS: Metoprolol Succinate ER 100 MG TAB.ER.24H PO (08:25)
[2021-05-27] MEDS: Atorvastatin Calcium 80 MG TABLET PO (08:25)
[2021-05-27] MEDS: Omeprazole 20 MG CAPSULE.DR PO (08:25)
[2021-05-27] MEDS: Clopidogrel Bisulfate 75 MG TABLET PO (08:25)
[2021-05-27] MEDS: Ranolazine 500 MG TAB.ER.12H PO ×2 (08:25→20:26)
[2021-05-27] MEDS: amLODIPine Besylate 10 MG TABLET PO (08:25)
[2021-05-27] MEDS: 0.9 % Sodium Chloride Flush 3 ML SYRINGE IVFLUSH ×3 (08:26→20:27)
[2021-05-27 09:09] LABS: Prothrombin Time 34.8 SEC (9.9-13.0)
--- NOTE | 2021-05-27 10:15 | P.PNIM_ITS ---
Subjective Subjective Date of Service: 05/27/21 Interval History: Seen in f/u for dyspnea, heart failure, feels better, no new issue Review of Systems Gen: no fever Resp: no sob, no cough CV: no ches paint, + PAGE, no leg edema GI: No n/v, no abd pain Neuro: No confusion Physical Exam Vital Signs: Vital Signs: Last Vital Signs Temp 97 F 05/27/21 06:57 Pulse 77 05/27/21 08:25 Resp 18 05/27/21 06:57 BP 113/58 L 05/27/21 08:25 Pulse Ox 95 05/27/21 06:57 Body Mass Index 23.6 Const: General: cooperative and no acute distress Orientation/consciousness: patient oriented x3 Resp: Effort & Inspection: normal respiratory effort and able to speak in complete sentences Auscultation: clear to auscultation bilaterally, no crackles and no wheezes Cardio: Jugular venous distension: no JVD Rate: regular rate Rhythm: regular rhythm Heart sounds: S1 normal heart sound present, S2 normal heart sound present, no gallops and no murmurs GI: Palpation (GI): Soft to palpation Auscultation: normal bowel sounds Skin: General skin exam: no rashes or lesions noted Neuro: General: patient oriented x3 Extrem: Other: A 1+ edema to the manjarrez bilaterally General: Yes normal to inspection and Yes no clubbing, cyanosis or edema Objective Data Current Medications Generic Name Dose Route Start Last Admin Trade Name Freq PRN Reason Stop Dose Admin Acetaminophen 650 mg 05/25/21 00:50 Acetaminophen 325 Mg Tablet PO Q6H PRN Pain, Mild (Pain Scale 1-3) Albuterol/Ipratropium 3 ml 05/25/21 00:50 Albuterol/Iprat 2.5/0.5mg 3 Ml Ampul.Neb INHALE RQ4H PRN Shortness of Breath/Wheezing Amlodipine Besylate 10 mg 05/25/21 09:00 05/27/21 08:25 Amlodipine Besylate 10 Mg Tablet PO 10 mg DAILY [facility] Administration Protocol Atorvastatin Calcium 80 mg 05/25/21 09:00 05/27/21 08:25 Atorvastatin Calcium 80 Mg Tablet PO 80 mg DAILY [facility] Administration Clopidogrel Bisulfate 75 mg 05/25/21 09:00 05/27/21 08:25 Clopidogrel Bisulfate 75 Mg Tablet PO 75 mg DAILY [facility] Administration Docusate Sodium 100 mg 05/25/21 00:50 Docusate Sodium 100 Mg Capsule PO DAILY PRN Constipation Furosemide 40 mg 05/25/21 09:00 05/27/21 08:25 Furosemide 40 Mg/4 Ml Vial IVPUSH 40 mg BID@0900,1800 [facility] Administration Protocol Guaifenesin/Dextromethorphan 5 ml 05/25/21 21:33 Guaifenesin Dm 100/10/5 Ml 5 Ml Syrup PO Q6H PRN Cough Insulin Human Lispro 0 unit 05/25/21 07:30 05/27/21 07:20 Insulin Lispro 100 Unit/Ml 3 Ml Vial SUBCUT Not Given QIDACHS [facility] Protocol Levothyroxine Sodium 150 mcg 05/25/21 06:00 05/27/21 05:25 Levothyroxine Sodium 150 Mcg Tablet PO 150 mcg DAILY@0600 [facility] Administration Metoprolol Succinate 100 mg 05/25/21 09:00 05/27/21 08:25 Metoprolol Succinate Er 100 Mg Tab.Er.24h PO 100 mg DAILY [facility] Administration Protocol Omeprazole 20 mg 05/25/21 09:00 05/27/21 08:25 Omeprazole 20 Mg Capsule.Dr PO 20 mg DAILY [facility] Administration Ranolazine 500 mg 05/25/21 00:50 05/27/21 08:25 Ranolazine 500 Mg Tab.Er.12h PO 500 mg BID [facility] Administration Sodium Chloride 3 ml 05/25/21 08:00 05/27/21 08:26 0.9 % Sodium Chloride Flush 3 Ml Syringe IVFLUSH 3 ml QSHIFT [facility] Administration Labs CBC & Chem 7: 05/26/21 04:14 05/26/21 04:14 Labs: Laboratory Results - last 24 hr 05/26/21 05/26/21 05/26/21 11:06 16:27 19:59 PT INR POC Glucose 131 H 126 H 101 05/27/21 05/27/21 06:57 08:46 PT 34.8 H INR 3.0 H POC Glucose 100 Assessment and Plan (1) Acute diastolic (congestive) heart failure: Status: Acute (2) Atherosclerotic cardiovascular disease: Status: Acute Assessment and Plan: 71-year-old male with past medical history of CHF presents to the hospital with shortness of breath # Acute CHF exacerbation, likely from non compliance with diet. Clinically better. IV Lasix , monitor BMP daily # Acute hypoxic respiratory failure likely combination of CHF and COPD -CHF management as above. -Duonebs, steroid for COPD # DARREN on CKD3, Creatine is better, check BMP today # macrocytic anemia - hemoglobin dropped from 11.4-9.7 within last 3 months, elevated MCV B12 and Folate normal # prolonged QT--Monitor, avoid meds that can make it worse. # AFib--rate controlled with metoprolol, holding coumadin in anticipation of cardiac cath # hypertension - on the lower side -continue amlodipine, hold hydralazine, Imdur, and spironolactone as patient's blood pressure on the soft side and has DARREN - can resume BP medications once kidney function more stable on blood pressure also more stay # CAD status post stent in past - continue clopidogrel - continues metoprolol, statin -may have active CAD and will need diagnostic cath at [facility] [place], once INR is down holding INR and will be transfered to [facility] for cardiac cath DVT prophylaxis warfarin Quality Stroke Does the patient have a stroke diagnosis?: No VTE Prior VTE?: No VTE Risk Level:: Medical - moderate - high VTE Device Contraindication: Treatment Not Indicated VTE Drug Contraindication: N/A - Med Ordered
--- NOTE | 2021-05-27 10:59 | PM.PNCARD ---
Subjective Subjective Date of Service: 05/27/21 Interval history: He feels ok. Still short of breath. Review of Systems Review of Systems Yes all other systems are reviewed and are negative Cardiovascular: Reports as per HPI, Reports no additional cardiovascular complaints, Denies acrocyanosis, Denies cool extremities, Denies painful fingertips, Denies chest pain, Denies chest pain at rest, Denies diaphoresis, Denies syncope, Denies irregular heart rhythm, Denies claudication, Denies leg edema, Denies lightheadedness, Denies palpitations, Reports dyspnea and Reports dyspnea on exertion Respiratory: Reports dyspnea and Reports dyspnea on exertion Denies syncope Endocrine: Denies palpitations Physical Exam Vital Signs: Last Vital Signs Temp 97 F 05/27/21 10:55 Pulse 66 05/27/21 10:55 Resp 18 05/27/21 10:55 BP 141/60 H 05/27/21 10:55 Pulse Ox 93 05/27/21 10:55 Body Mass Index 23.6 Const General: cooperative and no acute distress HENFL Other: Unremarkable Neck Neck: Yes normal visual inspection Chest Chest palpation & inspection: normal inspection of the chest Resp Auscultation: clear to auscultation bilaterally, no crackles and no wheezes Cardio Jugular venous distension: no JVD Palpation: normal PMI Heart sounds: S1 normal heart sound present, S2 normal heart sound present, no gallops, no murmurs and no rubs GI Palpation (GI): Soft to palpation Back/Spine/Pelvis Other: unremarkable Skin General skin exam: no rashes or lesions noted Neuro Cranial nerves: Yes Other cranial nerve findings present Extrem General: Yes no clubbing, cyanosis or edema Psych Mental Status: other Results Labs and Meds Result diagrams: 05/26/21 04:14 05/26/21 04:14 Lab results: Laboratory Results - last 24 hr 05/26/21 05/26/21 05/26/21 11:06 16:27 19:59 PT INR POC Glucose 131 H 126 H 101 05/27/21 05/27/21 06:57 08:46 PT 34.8 H INR 3.0 H POC Glucose 100 Progress Note: A&P Assessment and plan (1) Acute diastolic (congestive) heart failure: Status: Acute (2) Persistent atrial fibrillation: Status: Acute (3) Atherosclerotic cardiovascular disease: Status: Acute (4) Normally functioning cardiac pacemaker present: Status: Acute Assessment and Plan: Overall, due to ongoing shortness of breath and without any clear etiology, plan for diagnostic cardiac catheterization to assess the patency of his prior left main stent. This can be potentially on Monday due to elevated INR. Will hold Coumadin for the next few days. If it goes below 2 then, possibly Lovenox or IV heparin.Will follow. Fall Risk Details Current Medications: Current Medications Generic Name Dose Route Start Last Admin Trade Name Freq PRN Reason Stop Dose Admin Acetaminophen 650 mg 05/25/21 00:50 Acetaminophen 325 Mg Tablet PO Q6H PRN Pain, Mild (Pain Scale 1-3) Albuterol/Ipratropium 3 ml 05/25/21 00:50 Albuterol/Iprat 2.5/0.5mg 3 Ml Ampul.Neb INHALE RQ4H PRN Shortness of Breath/Wheezing Amlodipine Besylate 10 mg 05/25/21 09:00 05/27/21 08:25 Amlodipine Besylate 10 Mg Tablet PO 10 mg DAILY [facility] Administration Protocol Atorvastatin Calcium 80 mg 05/25/21 09:00 05/27/21 08:25 Atorvastatin Calcium 80 Mg Tablet PO 80 mg DAILY [facility] Administration Clopidogrel Bisulfate 75 mg 05/25/21 09:00 05/27/21 08:25 Clopidogrel Bisulfate 75 Mg Tablet PO 75 mg DAILY [facility] Administration Docusate Sodium 100 mg 05/25/21 00:50 Docusate Sodium 100 Mg Capsule PO DAILY PRN Constipation Furosemide 40 mg 05/25/21 09:00 05/27/21 08:25 Furosemide 40 Mg/4 Ml Vial IVPUSH 40 mg BID@0900,1800 [facility] Administration Protocol Guaifenesin/Dextromethorphan 5 ml 05/25/21 21:33 Guaifenesin Dm 100/10/5 Ml 5 Ml Syrup PO Q6H PRN Cough Insulin Human Lispro 0 unit 05/25/21 07:30 05/27/21 07:20 Insulin Lispro 100 Unit/Ml 3 Ml Vial SUBCUT Not Given QIDACHS [facility] Protocol Levothyroxine Sodium 150 mcg 05/25/21 06:00 05/27/21 05:25 Levothyroxine Sodium 150 Mcg Tablet PO 150 mcg DAILY@0600 [facility] Administration Metoprolol Succinate 100 mg 05/25/21 09:00 05/27/21 08:25 Metoprolol Succinate Er 100 Mg Tab.Er.24h PO 100 mg DAILY [facility] Administration Protocol Omeprazole 20 mg 05/25/21 09:00 05/27/21 08:25 Omeprazole 20 Mg Capsule.Dr PO 20 mg DAILY [facility] Administration Ranolazine 500 mg 05/25/21 00:50 05/27/21 08:25 Ranolazine 500 Mg Tab.Er.12h PO 500 mg BID [facility] Administration Sodium Chloride 3 ml 05/25/21 08:00 05/27/21 08:26 0.9 % Sodium Chloride Flush 3 Ml Syringe IVFLUSH 3 ml QSHIFT [facility] Administration Time Spent With Patient Time: Total time spent is greater than 50% in coordination of care (as documented) at patient's floor/unit and/or counseling patient: Time with patient: less than 15 minutes Progress Note: Quality Stroke Does the patient have a stroke diagnosis?: No Procedures Date of Service Date of Service: 05/27/21
[2021-05-27 11:03] LABS: Anion Gap 15 (12-20); Blood Urea Nitrogen 25 mg/dL (9-16); Calcium 9.7 mg/dL (8.4-10.2); Carbon Dioxide 23 mmol/L (22-29); Chloride 107 mmol/L (96-108); Creatinine Clr Calc Pharmacy 37.5; Estimated Glomerular Filt Rate 38; Glucose Random 129 mg/dL (60-115); Potassium 4.2 mmol/L (3.3-5.1); Sodium 141 mmol/L (135-145)
[2021-05-27 11:10] LABS: Glucose, Whole Blood 123 mg/dL (60-115)
[2021-05-27 16:10] LABS: Glucose, Whole Blood 120 mg/dL (60-115)
[2021-05-27 18:00] LABS: OBS Int Ctl Valid YES; OBS1 NEGATIVE (NEGATIVE)
[2021-05-27 19:57] LABS: Glucose, Whole Blood 117 mg/dL (60-115)
[2021-05-28 03:51] VITALS: BP 100/52; PULSE 76; RESP 17; TEMP 36.2; O2SAT 97
[2021-05-28 06:00] VITALS: BMI 23.0
[2021-05-28] MEDS: Levothyroxine Sodium 150 MCG TABLET PO (06:03)
[2021-05-28 06:18] LABS: INTERNATIONAL NORM RATIO 2.2 (0.9-1.1); Prothrombin Time 25.4 SEC (9.9-13.0)
[2021-05-28 06:35] LABS: Anion Gap 14 (12-20); Blood Urea Nitrogen 33 mg/dL (9-16); Calcium 9.6 mg/dL (8.4-10.2); Carbon Dioxide 23 mmol/L (22-29); Chloride 107 mmol/L (96-108); Creatinine Clr Calc Pharmacy 39.7; Estimated Glomerular Filt Rate 40; Glucose Random 104 mg/dL (60-115); Potassium 3.9 mmol/L (3.3-5.1); Sodium 140 mmol/L (135-145)
[2021-05-28 07:22] VITALS: BP 106/56; PULSE 81; RESP 18; TEMP 35.7; O2SAT 96
[2021-05-28 07:35] LABS: Glucose, Whole Blood 106 mg/dL (60-115)
--- NOTE | 2021-05-28 07:46 | PC.NURSE ---
Skin assessment completed this morning. Patient has multiple healing bruises on bilateral arms. No other skin issues noted. Patient moves himself in bed and ambulates.
[2021-05-28] MEDS: Ranolazine 500 MG TAB.ER.12H PO (08:47)
[2021-05-28] MEDS: Omeprazole 20 MG CAPSULE.DR PO (08:47)
[2021-05-28 08:49] VITALS: BP 106/56; PULSE 81
[2021-05-28] MEDS: Metoprolol Succinate ER 100 MG TAB.ER.24H PO (08:49)
[2021-05-28] MEDS: amLODIPine Besylate 10 MG TABLET PO (08:49)
[2021-05-28] MEDS: Atorvastatin Calcium 80 MG TABLET PO (08:49)
[2021-05-28] MEDS: Furosemide 40 MG/4 ML VIAL IVPUSH (08:49)
[2021-05-28] MEDS: 0.9 % Sodium Chloride Flush 3 ML SYRINGE IVFLUSH ×2 (08:50→17:19)
[2021-05-28] MEDS: Clopidogrel Bisulfate 75 MG TABLET PO (10:01)
[2021-05-28] MEDS: Throat Lozenge, Medicated LOZENGE 1 LOZENGE MUCOUS MEM (10:01)
[2021-05-28 10:43] VITALS: BP 138/81; PULSE 77; RESP 20; TEMP 36.1; O2SAT 93
[2021-05-28 11:30] LABS: Glucose, Whole Blood 117 mg/dL (60-115)
--- NOTE | 2021-05-28 12:20 | P.PNCA_ITS ---
Subjective Subjective Date of Service: 05/28/21 Interval history: Some shortness of breath/cough; otherwise OK. Review of Systems Review of Systems Yes all other systems are reviewed and are negative Cardiovascular: Reports as per HPI, Reports no additional cardiovascular complaints, Denies acrocyanosis, Denies cool extremities, Denies painful fingertips, Denies chest pain, Denies chest pain at rest, Denies diaphoresis, Denies syncope, Denies irregular heart rhythm, Denies claudication, Denies leg edema, Denies lightheadedness, Denies palpitations, Reports dyspnea and Reports dyspnea on exertion Respiratory: Reports dyspnea and Reports dyspnea on exertion Denies syncope Endocrine: Denies palpitations Physical Exam Vital Signs: Last Vital Signs Temp 97.0 F 05/28/21 10:43 Pulse 77 05/28/21 10:43 Resp 20 05/28/21 10:43 BP 138/81 05/28/21 10:43 Pulse Ox 93 05/28/21 10:43 Body Mass Index 23.0 Const General: cooperative and no acute distress [facility] Other: Unremarkable Neck Neck: Yes normal visual inspection Chest Chest palpation & inspection: normal inspection of the chest Resp Auscultation: clear to auscultation bilaterally, no crackles and no wheezes Cardio Jugular venous distension: no JVD Palpation: normal PMI Heart sounds: S1 normal heart sound present, S2 normal heart sound present, no gallops, no murmurs and no rubs GI Palpation (GI): Soft to palpation Back/Spine/Pelvis Other: unremarkable Skin General skin exam: no rashes or lesions noted Neuro Cranial nerves: Yes Other cranial nerve findings present Extrem General: Yes no clubbing, cyanosis or edema Psych Mental Status: other Results Labs and Meds Result diagrams: 05/26/21 04:14 05/28/21 05:43 Lab results: Laboratory Results - last 24 hr 05/27/21 05/27/21 05/27/21 15:58 17:45 19:49 PT INR Sodium Potassium Chloride Carbon Dioxide Anion Gap BUN Creatinine Estim Creat Clear Calc Estimated GFR POC Glucose 120 H 117 H Random Glucose Calcium Stool Occult Blood NEGATIVE 05/28/21 05/28/21 05/28/21 05:42 05:43 07: PT 25.4 H D INR 2.2 H Sodium 140 Potassium 3.9 Chloride 107 Carbon Dioxide 23 Anion Gap 14 BUN 33 H Creatinine 1.68 H Estim Creat Clear Calc 39.7 Estimated GFR 40 POC Glucose 106 Random Glucose 104 Calcium 9.6 Stool Occult Blood 05/28/21 11:24 PT INR Sodium Potassium Chloride Carbon Dioxide Anion Gap BUN Creatinine Estim Creat Clear Calc Estimated GFR POC Glucose 117 H Random Glucose Calcium Stool Occult Blood Progress Note: A&P Assessment and plan (1) Acute diastolic (congestive) heart failure: Status: Acute (2) Persistent atrial fibrillation: Status: Acute (3) Atherosclerotic cardiovascular disease: Status: Acute (4) Normally functioning cardiac pacemaker present: Status: Acute Assessment and Plan: Overall, due to ongoing shortness of breath and without any clear etiology, plan for diagnostic cardiac catheterization to assess the patency of his prior left main stent. This can be potentially on Monday due to elevated INR. Will hold Coumadin for the next few days. If it goes below 2 then, possibly Lovenox or IV heparin. [place] [facility] Fall Risk Details Current Medications: Current Medications Generic Name Dose Route Start Last Admin Trade Name Freq PRN Reason Stop Dose Admin Acetaminophen 650 mg 05/25/21 00:50 Acetaminophen 325 Mg Tablet PO Q6H PRN Pain, Mild (Pain Scale 1-3) Albuterol/Ipratropium 3 ml 05/25/21 00:50 Albuterol/Iprat 2.5/0.5mg 3 Ml Ampul.Neb INHALE RQ4H PRN Shortness of Breath/Wheezing Amlodipine Besylate 10 mg 05/25/21 09:00 05/28/21 08:49 Amlodipine Besylate 10 Mg Tablet PO 10 mg DAILY [facility] Administration Protocol Atorvastatin Calcium 80 mg 05/25/21 09:00 05/28/21 08:49 Atorvastatin Calcium 80 Mg Tablet PO 80 mg DAILY [facility] Administration Benzocaine 1 lozenge 05/28/21 09:04 05/28/21 10:01 Throat Lozenge, Medicated Lozenge MUCOUS MEM 1 lozenge Q2H PRN Administration Sore Throat Clopidogrel Bisulfate 75 mg 05/25/21 09:00 05/28/21 10:01 Clopidogrel Bisulfate 75 Mg Tablet PO 75 mg DAILY [facility] Administration Docusate Sodium 100 mg 05/25/21 00:50 Docusate Sodium 100 Mg Capsule PO DAILY PRN Constipation Furosemide 40 mg 05/25/21 09:00 05/28/21 08:49 Furosemide 40 Mg/4 Ml Vial IVPUSH 40 mg BID@0900,1800 [facility] Administration Protocol Guaifenesin 5 ml 05/28/21 09:02 Guaifenesin 100 Mg/5 Ml Liquid PO Q4H PRN Cough Guaifenesin/Dextromethorphan 5 ml 05/25/21 21:33 Guaifenesin Dm 100/10/5 Ml 5 Ml Syrup PO Q6H PRN Cough Insulin Human Lispro 0 unit 05/25/21 07:30 05/28/21 11:40 Insulin Lispro 100 Unit/Ml 3 Ml Vial SUBCUT Not Given QIDACHS [facility] Protocol Levothyroxine Sodium 150 mcg 05/25/21 06:00 05/28/21 06:03 Levothyroxine Sodium 150 Mcg Tablet PO 150 mcg DAILY@0600 [facility] Administration Metoprolol Succinate 100 mg 05/25/21 09:00 05/28/21 08:49 Metoprolol Succinate Er 100 Mg Tab.Er.24h PO 100 mg DAILY [facility] Administration Protocol Omeprazole 20 mg 05/25/21 09:00 05/28/21 08:47 Omeprazole 20 Mg Capsule.Dr PO 20 mg DAILY [facility] Administration Ranolazine 500 mg 05/25/21 00:50 05/28/21 08:47 Ranolazine 500 Mg Tab.Er.12h PO 500 mg BID [facility] Administration Sodium Chloride 3 ml 05/25/21 08:00 05/28/21 08:50 0.9 % Sodium Chloride Flush 3 Ml Syringe IVFLUSH 3 ml QSHIFT [facility] Administration Time Spent With Patient Time: Total time spent is greater than 50% in coordination of care (as documented) at patient's floor/unit and/or counseling patient: Time with patient: less than 15 minutes Progress Note: Quality Stroke Does the patient have a stroke diagnosis?: No Procedures Date of Service Date of Service: 05/28/21
[2021-05-28 15:22] VITALS: BP 97/56; PULSE 69; RESP 20; TEMP 36.6; O2SAT 97
--- NOTE | 2021-05-28 16:21 | HO.PM.IMPN ---
Subjective Subjective Date of Service: 05/28/21 Interval History: chf excerebation Physical Exam Vital Signs: Vital Signs: Last Vital Signs Temp 97.8 F 05/28/21 15:22 Pulse 69 05/28/21 15:22 Resp 20 05/28/21 15:22 BP 97/56 L 05/28/21 15:22 Pulse Ox 97 05/28/21 15:22 Body Mass Index 23.0 physical exam: Cvs: rrr, [id number] , no murmur res: clear to auscultation ,no rhonchii or wheezing abd: no rebound or guarding ,nt, bs present. ext pulses present , no cyanosis neuro: axo3 , nonfocal. Objective Data Current Medications Generic Name Dose Route Start Last Admin Trade Name Freq PRN Reason Stop Dose Admin Acetaminophen 650 mg 05/25/21 00:50 Acetaminophen 325 Mg Tablet PO Q6H PRN Pain, Mild (Pain Scale 1-3) Albuterol/Ipratropium 3 ml 05/25/21 00:50 Albuterol/Iprat 2.5/0.5mg 3 Ml Ampul.Neb INHALE RQ4H PRN Shortness of Breath/Wheezing Amlodipine Besylate 10 mg 05/25/21 09:00 05/28/21 08:49 Amlodipine Besylate 10 Mg Tablet PO 10 mg DAILY MILDRED Administration Protocol Atorvastatin Calcium 80 mg 05/25/21 09:00 05/28/21 08:49 Atorvastatin Calcium 80 Mg Tablet PO 80 mg DAILY MILDRED Administration Benzocaine 1 lozenge 05/28/21 09:04 05/28/21 10:01 Throat Lozenge, Medicated Lozenge MUCOUS MEM 1 lozenge Q2H PRN Administration Sore Throat Clopidogrel Bisulfate 75 mg 05/25/21 09:00 05/28/21 10:01 Clopidogrel Bisulfate 75 Mg Tablet PO 75 mg DAILY MILDRED Administration Docusate Sodium 100 mg 05/25/21 00:50 Docusate Sodium 100 Mg Capsule PO DAILY PRN Constipation Furosemide 40 mg 05/25/21 09:00 05/28/21 08:49 Furosemide 40 Mg/4 Ml Vial IVPUSH 40 mg BID@0900,1800 MILDRED Administration Protocol Guaifenesin 5 ml 05/28/21 09:02 Guaifenesin 100 Mg/5 Ml Liquid PO Q4H PRN Cough Guaifenesin/Dextromethorphan 5 ml 05/25/21 21:33 Guaifenesin Dm 100/10/5 Ml 5 Ml Syrup PO Q6H PRN Cough Insulin Human Lispro 0 unit 05/25/21 07:30 05/28/21 11:40 Insulin Lispro 100 Unit/Ml 3 Ml Vial SUBCUT Not Given QIDACHS [facility] Protocol Levothyroxine Sodium 150 mcg 05/25/21 06:00 05/28/21 06:03 Levothyroxine Sodium 150 Mcg Tablet PO 150 mcg DAILY@0600 MILDRED Administration Metoprolol Succinate 100 mg 05/25/21 09:00 05/28/21 08:49 Metoprolol Succinate Er 100 Mg Tab.Er.24h PO 100 mg DAILY MILDRED Administration Protocol Omeprazole 20 mg 05/25/21 09:00 05/28/21 08:47 Omeprazole 20 Mg Capsule.Dr PO 20 mg DAILY MILDRED Administration Ranolazine 500 mg 05/25/21 00:50 05/28/21 08:47 Ranolazine 500 Mg Tab.Er.12h PO 500 mg BID MILDRED Administration Sodium Chloride 3 ml 05/25/21 08:00 05/28/21 08:50 0.9 % Sodium Chloride Flush 3 Ml Syringe IVFLUSH 3 ml QSHIFT MILDRED Administration Labs CBC & Chem 7: 05/26/21 04:14 05/28/21 05:43 Labs: Laboratory Results - last 24 hr 05/27/21 05/27/21 05/28/21 17:45 19:49 05:42 PT 25.4 H D INR 2.2 H Anion Gap Estim Creat Clear Calc Estimated GFR POC Glucose 117 H Random Glucose Calcium Stool Occult Blood NEGATIVE 05/28/21 05/28/21 05/28/21 05:43 07:21 11:24 PT INR Anion Gap 14 Estim Creat Clear Calc 39.7 Estimated GFR 40 POC Glucose 106 117 H Random Glucose 104 Calcium 9.6 Stool Occult Blood Assessment and Plan (1) CHF exacerbation: Status: Acute Assessment and Plan: 71-year-old male with past medical history of CHF presents to the hospital with shortness of breath 1. Acute CHF exacerbation, likely from non compliance with diet. Clinically better. IV Lasix ,will switch to po lasix - monitor BMP daily 2. Acute hypoxic respiratory failure likely combination of CHF and COPD -CHF management as above. -Duonebs, steroid for COPD 3. DARREN on CKD3, Creatine is similar as yesterday, check BMP . 4. macrocytic anemia - hemoglobin dropped from 11.4-9.7 within last 3 months, elevated MCV B12 and Folate normal 5. prolonged QT--Monitor, avoid meds that can make it worse. 6. AFib--rate controlled with metoprolol, holding coumadin in anticipation of cardiac cath 7. hypertension - on the lower side -continue amlodipine, hold hydralazine, Imdur, and spironolactone as patient's blood pressure on the soft side and has DARREN - can resume BP medications once kidney function more stable on blood pressure also more stay 8. CAD status post stent in past - continue clopidogrel - continues metoprolol, statin -may have active CAD and will need diagnostic cath at [facility], once INR is down holding INR and will be transfered to [facility] for cardiac ca Quality Stroke Does the patient have a stroke diagnosis?: No VTE Prior VTE?: No VTE Risk Level:: Medical - moderate - high VTE Device Contraindication: Treatment Not Indicated VTE Drug Contraindication: N/A - Med Ordered
[2021-05-28 16:42] LABS: Glucose, Whole Blood 125 mg/dL (60-115)
--- NOTE | 2021-05-28 17:34 | PM.DS ---
DS: Providers Provider Date of Service: 04/28/21 Date of admission: 05/25/21 00:41 Primary care physician: Davis Tom MD Consults: 05/25/21 00:50 Consult to Cardiology Routine Consulting Provider: Sergio Ramirez Reason for consultation: CHF Has provider been notified: Yes DS: Diagnosis Discharge Diagnosis (1) CHF exacerbation: Status: Acute DS: Medications Discharge Medications Home Medications: Home Medications Medication Instructions Recorded Confirmed albuterol sulfate 90 mcg/actuation INHALATION 08/03/20 09/11/20 aerosol inhaler tiotropium bromide 2.5 INHALATION 08/03/20 09/11/20 mcg/actuation mist for inhalation amlodipine 10 mg tablet 10 mg PO DAILY tab 08/12/20 05/24/21 atorvastatin 80 mg tablet 80 mg PO DAILY tab 08/12/20 05/24/21 clopidogrel 75 mg tablet 75 mg PO DAILY tab 08/12/20 05/24/21 furosemide 40 mg tablet 40 mg PO DAILY tab 08/12/20 05/24/21 isosorbide mononitrate 30 mg 30 mg PO DAILY tab 08/12/20 05/24/21 tablet,extended release 24 hr levothyroxine 150 mcg tablet 150 mcg PO DAILY tab 08/12/20 05/24/21 metformin 500 mg tablet 500 mg PO BEDTIME tab 08/12/20 05/25/21 omeprazole 20 mg capsule,delayed 20 mg PO DAILY cap 08/12/20 05/24/21 release spironolactone 25 mg tablet 25 mg PO DAILY tab 08/12/20 05/24/21 warfarin 3 mg tablet 3 mg PO DIRECTED tab 08/12/20 05/24/21 Previous Rx's Medication Instructions Recorded metoprolol succinate 100 mg 100 mg PO DAILY 90 Days #90 tab 10/20/20 tablet,extended release 24 hr hydralazine 25 mg tablet 25 mg PO TID #270 tab 02/23/21 ranolazine 500 mg tablet,extended 500 mg PO BID 30 Days #60 tab 05/11/21 release,12 hr DS: Summary Hospital Course Hospital Course: 71-year-old male with past medical history of CHF, AFib, CAD status post TN and stent in the anterior descending branch of the left coronary artery, HTN, heart failure with preserved ejection fraction, history of permanent cardiac pacemaker, type 2 diabetes presents to the hospital with complaints of shortness of breath.? Patient reports his symptoms started about 2 weeks ago, worsened over the past few days.? Reports minimal effort with significant shortness of breath.? He he cannot walk more than 100 ft without becoming short of breath and needing to rest to catch his breath.? He reports a dry cough mostly when he is lying flat, orthopnea, PND, has not noticed any swelling in his legs.? Patient reports compliance with his Lasix 40 mg daily but reports consuming salty food. Denies any chest pain, no abdominal pain, no urinary symptoms and no numbness weakness or tingling. Vitals are significant for hypoxia with oxygen down to the mid 80s even on 3 L of oxygen while talking to me.? Otherwise does normal Labs are significant for WBC count of 6.0, hemoglobin of 9.7 that dropped from 11.4 , hematocrit of 28.4, in December, MCV of 100.7, PT of 31.1, INR of 2.7, PTT of 45.2, potassium of 3.2, BUN 21, creatinine of 1.73 with a baseline of 1.17 in December of 2020, BNP of 869, UA negative.? Troponin negative,? COVID-19 negative EKG shows sinus rhythm with first-degree AV block with PACs, QTC of 497, ST and T-wave abnormality seen on previous EKG Shows stable examination without evidence of acute pulmonary process Past medical history as below and confirmed with patient Hospital course: 71-year-old male with past medical history of CHF presents to the hospital with shortness of breath Patient came to the hospital because of sob-thought to be multifactorial chf exacerbation/copd: Started on IV Lasix subsequently shortness of breath is improving, may need to switch p.o. Lasix in the morning. Patient had acute hypoxemic respiratory failure which was thought to be secondary to CHF/COPD: Improving with the diuretics and nebs-please continue that in [facility]. Taper oxygen. Patient also had DARREN on CKD which seems to be improving creatinine seems improving: Monitor BMP closely, consider Nephro evaluation if needed since patient is on Lasix also. Patient also was found to have QT prolongation: qt is 458 ms today on tele,Monitor, avoid meds that can make it worse. Patient has coronary artery disease status post stent in the past: Continue his clopidogrel, metoprolol, statin-patient needs to go to [facility] for further cardiac catheterization To assess patency of prior left main stent, he is off Coumadin and his INR is 2.2 today-cardiology recommended to start him on IV heparin once INR is below 2, monitor INR closely in [facility]. In addition: macrocytic anemia hemoglobin dropped from 11.4range B12 and Folate normal-moniter cbc closely. AFib--rate controlled with metoprolol, holding coumadin in anticipation of cardiac cath. [place] what is old hypertension - on the lower side -continue amlodipine, hold hydralazine, Imdur, and spironolactone as patient's blood pressure on the soft side and has DARREN - can resume BP medications once kidney function more stable on blood pressure also more stay moniter cbc , bmp , pt/inr Time Spent with Patient Time attestation: Total time spent providing and/or coordinating discharge services: Discharge coordination time: Greater than 30 minutes Quality: Stroke Does the patient have a stroke diagnosis?: No Physical Exam Vital Signs: Vital Signs: Last Vital Signs Temp 97.8 F 05/28/21 15:22 Pulse 69 05/28/21 15:22 Resp 20 05/28/21 15:22 BP 97/56 L 05/28/21 15:22 Pulse Ox 97 05/28/21 15:22 Body Mass Index 23.0 Physical: Consult: Not in acute distress. Cvs: rrr, [id number] , no murmur res: clear to auscultation ,no rhonchii or wheezing abd: no rebound or guarding ,nt, bs present. ext pulses present , no cyanosis, trace edema neuro: axo3 , nonfocal. DS: Data Data Completed and Pending Labs on day of discharge: Laboratory Results - last 24 hr 05/27/21 05/27/21 05/28/21 17:45 19:49 05:42 PT 25.4 H D INR 2.2 H Sodium Potassium Chloride Carbon Dioxide Anion Gap BUN Creatinine Estim Creat Clear Calc Estimated GFR POC Glucose 117 H Random Glucose Calcium Stool Occult Blood NEGATIVE 05/28/21 05/28/21 05/28/21 05:43 07:21 11:24 PT INR Sodium 140 Potassium 3.9 Chloride 107 Carbon Dioxide 23 Anion Gap 14 BUN 33 H Creatinine 1.68 H Estim Creat Clear Calc 39.7 Estimated GFR 40 POC Glucose 106 117 H Random Glucose 104 Calcium 9.6 Stool Occult Blood 05/28/21 16:39 PT INR Sodium Potassium Chloride Carbon Dioxide Anion Gap BUN Creatinine Estim Creat Clear Calc Estimated GFR POC Glucose 125 H Random Glucose Calcium Stool Occult Blood Discharge Plan Discharge Patient Disposition: Xfer Acute Care Hospital Discharge Diagnosis: acut chf excerebation, darren on ckd, prolong qtc Referrals: Davis Tom MD [Primary Care Provider] - 1 Week Discharge Medications: New ipratropium-albuterol 0.5 mg-3 mg(2.5 mg base)/3 mL Solution For Nebulization 3 ml inhalation RQ4H PRN (Reason: Shortness Of Breath/Wheezing) Qty: 15 RF: 0 furosemide 10 mg/mL Solution 40 mg IVPUSH BID@0900,1800 Qty: 2 RF: 0 Continued metoprolol succinate 100 mg tablet extended release 24 hr 100 mg PO DAILY 90 Days Qty: 90 RF: 3 ranolazine 500 mg tablet extended release 12 hr 500 mg PO BID 30 Days Qty: 60 RF: 0 Spiriva Respimat 2.5 mcg/actuation mist inhalation RF: 0 albuterol sulfate 90 mcg/actuation HFA aerosol inhaler inhalation RF: 0 amlodipine 10 mg tablet 10 mg PO DAILY RF: 0 atorvastatin 80 mg tablet 80 mg PO DAILY RF: 0 clopidogrel 75 mg tablet 75 mg PO DAILY RF: 0 levothyroxine 150 mcg tablet 150 mcg PO DAILY RF: 0 metformin 500 mg tablet 500 mg PO BEDTIME RF: 0 omeprazole 20 mg capsule,delayed release(DR/EC) 20 mg PO DAILY RF: 0 Held hydralazine 25 mg tablet 25 mg PO TID Qty: 270 RF: 3 Hold Instructions: Resume on 05/31/21. Hold due to softer blood pressure . furosemide 40 mg tablet 40 mg PO DAILY RF: 0 Hold Instructions: Resume on 05/31/21. isosorbide mononitrate 30 mg tablet extended release 24 hr 30 mg PO DAILY RF: 0 Hold Instructions: Hold due to softer blood pressure spironolactone 25 mg tablet 25 mg PO DAILY RF: 0 Hold Instructions: Hold due to softer blood pressure. warfarin 3 mg tablet 3 mg PO DIRECTED RF: 0 Hold Instructions: Resume on 06/01/21. start once cleared by cardio Discharge Orders: Discharge Order (Routine); Ordered 05/28/21 Ordered By: Gilberto Padgett Diet: advance to usual diet, low fat, low cholesterol and low salt diet Activity on Discharge: As tolerated Stand Alone Forms: Patient Portal Discharge page Care Plan Goals: Patient came to the hospital because of chf exacerbation: Started on IV Lasix subsequently shortness of breath is improving, may need to switch p.o. Lasix in the morning. Patient also had DARREN on CKD which seems to be improving creatinine seems improving: Monitor BMP closely, consider Nephro evaluation if needed since patient is on Lasix also. Patient also was found to have QT prolongation please avoid medications that can i make it worse. Patient had acute hypoxemic respiratory failure which was thought to be secondary to CHF/COPD: Improving with the diuretics and nebs-please continue that in [facility]. Taper oxygen. Patient has coronary artery disease status post stent in the past: Continue his clopidogrel, metoprolol, statin-patient needs to go to [facility] for further cardiac catheterization To assess patency of prior left main stent, he is off Coumadin and his INR is 2.2-cardiology recommended to start him on IV heparin once INR is below 2, monitor INR closely in [facility]. . Monitor CBC, BMP, INR closely as above. Health Concerns: As above. Plan of Treatment: As above. Assessment: As above.
== END 2021-05-28 18:00 | disposition short-term general hospital (02) | DRG 291 ==
LOC: HO.ED 22:55 → HO.EDOVER 05-25 01:26 → HO.IMC 05-25 16:16
PROVIDERS: Internal Medicine; Admitting Provider Internal Medicine; Emergency Provider Student in an Organized Health Care Education/Training Program; PCP Family Medicine; Visit Provider Internal Medicine
DX: I13.0 Hypertensive heart and chronic kidney disease with heart failure and stage 1 through stage 4 chronic kidney disease, or unspecified chronic kidney disease (principal); J96.01 Acute respiratory failure with hypoxia; I50.33 Acute on chronic diastolic (congestive) heart failure; N17.9 Acute kidney failure, unspecified; I48.19 Other persistent atrial fibrillation; I25.10 Atherosclerotic heart disease of native coronary artery without angina pectoris; Z20.822 Contact with and (suspected) exposure to COVID-19; R94.31 Abnormal electrocardiogram [ECG] [EKG]; I25.2 Old myocardial infarction; E87.6 Hypokalemia; Z91.11 Patient's noncompliance with dietary regimen; Z95.0 Presence of cardiac pacemaker; N18.30 Chronic kidney disease, stage 3 unspecified; Z87.891 Personal history of nicotine dependence; Z79.01 Long term (current) use of anticoagulants; Z79.02 Long term (current) use of antithrombotics/antiplatelets; Z79.84 Long term (current) use of oral hypoglycemic drugs; Z79.890 Hormone replacement therapy; Z79.899 Other long term (current) drug therapy
CPT/HCPCS: 36415; 71046; 71250; 80048; 81003; 82272; 82607; 82728; 82746; 82803; 82947; 83735; 83880; 84484; 85025; 85027; 85610; 85730; 87635; 93005; 93306; 99285; J1940

== ENCOUNTER 2021-06-03 12:23 | Outpatient (REF) | payer MEDICARE, SELFPAY ==
[2021-06-03 13:28] LABS: Anion Gap 13 (12-20); Blood Urea Nitrogen 26 mg/dL (9-16); Carbon Dioxide 20 mmol/L (22-29); Chloride 111 mmol/L (96-108); Estimated Glomerular Filt Rate 40; Sodium 140 mmol/L (135-145)
== END 2021-06-03 12:24 | disposition home or self-care (01) ==
LOC: HO.LAB 12:23
PROVIDERS: PCP Family Medicine; Visit Provider Family Medicine
DX: I12.9 Hypertensive chronic kidney disease with stage 1 through stage 4 chronic kidney disease, or unspecified chronic kidney disease (principal); N18.30 Chronic kidney disease, stage 3 unspecified
CPT/HCPCS: 36415; 80051; 82565; 84520